=== PATIENT | female | born 1940 | race Caucasian/White ===

== ENCOUNTER 2022-05-29 11:20 | Inpatient (IN) | payer MEDICARE, SELFPAY ==
[2022-05-29] VITALS (8 sets, daily range): BP systolic 105–141; BP diastolic 60–80; PULSE 70–82; RESP 16–20; TEMP 36.7–37; O2SAT 95–100; BMI 21.4
--- NOTE | ~2022-05-29 | XR_ITS ---
EXAMINATION: XR chest 1V DATE: 05/29/2022 12:53 INDICATION: Right hip pain post fall TECHNIQUE: frontal view of the chest was obtained. COMPARISON: None FINDINGS: Lungs are hyperexpanded with mild biapical pleural-parenchymal scarring. Indeterminate approximately 2 cm spiculated nodule in the left midlung zone concerning for primary bronchogenic carcinoma. No oth er airspace opacities, pulmonary edema, pleural effusion or pneumothorax. Arch size is normal. Athero sclerotic aorta. IMPRESSION: 1. 2 cm spiculated nodule at the left midlung zone concerning for primary bronchogenic carcinoma. Rec ommend further evaluation with chest CT. Reviewed, dictated and finalized at location A. TER TECHNICIAN IMPRESSION: 1. 2 cm spiculated nodule at the left midlung zone concerning for primary bronc hogenic carcinoma. Recommend further evaluation with chest CT.
--- NOTE | ~2022-05-29 | CT_ITS ---
EXAMINATION: CT brain wo con DATE: 05/29/2022 13:02 INDICATION: Fall with head injury TECHNIQUE: Computed tomography (CT) of the head was performed without intravenous contrast. Sagittal and coronal reconstructions were performed. The mA was adjusted according to patient size. Iterative reconstruction technique was employed. The dose-length product was 605.33 mGy-cm. COMPARISON: None FINDINGS: No fracture. No acute intracranial hemorrhage, acute infarction or abnormal extra axial fluid collect ion. There is mild scattered white matter hypoattenuation consistent with chronic small vessel ischem ic disease. Symmetric prominence of the sulci consistent with mild age-appropriate diffuse cerebral v olume loss. Ventricles are normal and symmetric. No mass/mass effect. Changes of bilateral intraocula r lens replacement. The orbits and mastoid air cells are normal. Mild callosal thickening at the bila teral ethmoid sinuses. IMPRESSION: 1. No fracture or acute intracranial process. 2. Age-related changes including mild diffuse volume loss and mild scattered white matter hypoattenua tion consistent with chronic small vessel ischemic disease. Reviewed, dictated and finalized at location A. INSTRUCTOR IMPRESSION: 1. No fracture or acute intracranial process. 2. Age-related changes including mild diffuse volume loss and mild scattered wh ite matter hypoattenuation consistent with chronic small vessel ischemic diseas e.
--- NOTE | ~2022-05-29 | XR_ITS ---
EXAMINATION: XR hip RT 2V w AP pelvis DATE: 05/29/2022 12:53 INDICATION: Right hip pain post fall TECHNIQUE: Anteroposterior view of the pelvis and anteroposterior and cross-table lateral views of th e right hip were obtained. COMPARISON: None. FINDINGS: Nondisplaced intratrochanteric fracture of the proximal right femur with minimal posterior angulation resulting 4 mm separation of the anterior fracture margin on the lateral projection. There is a line ar lucency across the base of the right lesser trochanter however no discontinuity seen along the cor marta at the base of the lesser trochanter remains equivocal for whether the fracture is mildly comminu jeanmarie with typical separation of the lesser trochanter clearly seen with intratrochanteric fractures. N o other fractures identified. Visualization of the lower lumbar spine and sacrum is poor due to super imposed bowel gas. Bilateral hip joint spaces appear relatively preserved both tiny marginal osteophy yrn about the right femoral head. IMPRESSION: 1. Intertrochanteric fracture the proximal right femur, potentially mildly comminuted but which remai ns in near-anatomic alignment. Reviewed, dictated and finalized at location A. TESTER IMPRESSION: 1. Intertrochanteric fracture the proximal right femur, potentially mildly comm inuted but which remains in near-anatomic alignment.
--- NOTE | ~2022-05-29 | XR_ITS ---
EXAMINATION: XR surgery orthopedic DATE: 05/31/2022 11:20 SOCK MENDER INDICATION: RIGHT IT NAIL . TECHNIQUE: 5 fluoroscopic images of the right hip were obtained during right intertrochanteric nail p lacement performed by the surgeon. I was not present in the operating room. Fluoroscopy exposure time was 38 seconds. Air Kerma 7.4821 mGy. DAP 0.1483 mGym2. COMPARISON: None FINDINGS: Intertrochanteric nail placement, in good position. IMPRESSION: Fluoroscopic documentation of right intertrochanteric nail placement. Please refer to the operative n ote for complete procedural details . Reviewed, dictated and finalized at location K. MENDER IMPRESSION: Fluoroscopic documentation of right intertrochanteric nail placement. Please re zaina to the operative note for complete procedural details .
--- NOTE | 2022-05-29 12:26 | ECG_ITS ---
Measurements Intervals [place] Rate: 66 P: 82 CO: 163 QRS: 77 QRSD: 91 T: 66 QT: 408 QTc: 430 Interpretive Statements SINUS RHYTHM WITH OCCASIONAL SUPRAVENTRICULAR PREMATURE COMPLEXES SEPTAL MYOCARDIAL INFARCTION, OF INDETERMINATE AGE ABNORMAL ECG NO PREVIOUS ECG AVAILABLE FOR COMPARISON Electronically Signed On 05-30-2022 15:36:34 MANAGER MEDIA by Gustavo Jennings M.D.
--- NOTE | 2022-05-29 12:30 | ED.FALL ---
HPI - Fall General Chief Complaint: Fall Stated Complaint: fall Time Seen by Provider: 05/29/22 11:46 History of Present Illness HPI Narrative: Patient is an 81-year-old female presenting after a fall. Patient states that she tripped over a small dog and fell on her right side. States that she immediately had severe hip pain. States that she did strike her head but she did not lose consciousness. She denies headache, vision changes, numbness or weakness, neck or back pain. Patient was unable to ambulate so EMS was called. Patient was given a dose of fentanyl with some improvement in her pain currently states that it is 9 out of 10. She denies chest pain, shortness of breath, abdominal pain, vomiting. Denies further injuries. Related Data Home Medications Medication Instructions Recorded Confirmed No Home Medications 05/29/22 05/29/22 Allergies Allergy/AdvReac Type Severity Reaction Status Date / Time iohexol Allergy Hives Verified 05/29/22 18:52 [From contrast - CT, X-RAY] Penicillins Allergy Hives Verified 05/29/22 18:52 Review of Systems Review of Systems: All systems reviewed & are unremarkable except as noted in HPI and below PMFSH Past Medical History Medical History (Updated 06/02/22 @ 12:39 by Emily Medina MD) Closed intertrochanteric fracture of right hip ORIF on 05/31/[address] Kimbrough Multiple sclerosis Diagnosed in the 1980s. Not actively treated. Nicotine use Surgical History Surgical History History of arthroscopy of right shoulder History of bilateral cataract extraction History of bunionectomy History of kidney surgery Nephropexy. History of partial thyroidectomy Benign goiter. History of trigger finger Family History Family History Mother No problems noted. Father Cancer Sibling Brain cancer Sibling Cancer Social History Social History Social History: Surrogate medical decision maker: Ebony Price, daughter. Code status: Full code. Smoking packs per day: 0.3 Smoking cigarettes per day: 6.0 Years smoked: 60 Smoking pack-years: 18.00 Smoking status: Current every day smoker Tobacco type: cigarettes Alcohol intake: never Substance use: never Substance use type: does not use Lack of Transportation: No Lack of Food: Never True Current Housing: I Have Housing Concerned About Future Housing: No Difficulty Paying Gas/Electric Bills: No Difficulty Paying for Meds: No Currently Unemployed: No Education: High School Diploma/GED Difficulty w/ Childcare or Family Care: No Additional living arrangements comments: The patient lives in her own home in [place] with her edgardo. Spiritual care concerns: No Exam Narrative: GENERAL: Uncomfortable appearing HEAD: Normocephalic, atraumatic. EYES: PERRLA and EOMI. ENT: Nares clear, no rhinorrhea or epistaxis. Mucous membranes moist. NECK: Supple. CHEST: Clear to auscultation. No respiratory distress. HEART: Regular rate and rhythm. No murmur heard. Normal peripheral pulses. ABDOMEN: Soft, nontender, nondistended, normal active bowel sounds. EXTREMITIES: Right leg is shortened and externally rotated, severe tenderness of right hip, DP/PT pulses 2+ bilaterally SKIN: Warm, dry, no rash. NEURO: No focal deficits. Alert and oriented x3. PSYCH: Normal mood and affect. Course Vital Signs Vital signs: Vital Signs Temperature 98.6 F 05/29/22 11:26 Pulse Rate 75 05/29/22 11:26 Respiratory Rate 20 05/29/22 11:26 Blood Pressure 109/80 05/29/22 11:26 Pulse Oximetry 100 05/29/22 11:26 Oxygen Delivery Room Air 05/29/22 11:26 Temperature 98.7 F 06/02/22 09:51 Pulse Rate 94 06/02/22 09:51 Respiratory Rate 16 06/02/22 09:51 Blood Pressure 109/62 06/02/22 09:51 Pulse Oximet
[2022-05-29] MEDS: SODIUM CHLORIDE 0.9% IV 1,000 ML 999 ML IV CONT (12:36)
[2022-05-29] MEDS: fentaNYL CITRATE INJ (*CRX) 100 MCG/2 ML VIAL 50 MCG IV PUSH (12:36)
[2022-05-29 13:16] LABS: Basophils Absolute Auto 0.1 K/mm3 (0.0-0.1); Basophils Percent Auto 0.5 % (0.2-1.2); Eosinophils Percent Auto 0.1 % (0-4.4); Hematocrit 38.7 % (37.0-47.0); Immature Granulocyte Absolute 0.04 K/mm3 (0.00-0.031); Immature Granulocyte Percent A 0.4 % (0-0.5); Lymphocytes Absolute Auto 0.77 K/mm3 (0.9-3.2); Lymphocytes Percent Auto 7.7 % (18.3-44.2); Mean Corpuscular HGB Conc 33.6 g/dl (32-36); Mean Corpuscular Hemoglobin 33.1 pg (26-34); Mean Corpuscular Volume 98.5 fl (80-100); Mean Platelet Volume 8.4 fl (7.4-10.4); Monocytes Absolute Auto 0.4 K/mm3 (0.1-0.6); Monocytes Percent Auto 4.3 % (2.6-8.5); Neutrophils Absolute Auto 8.7 K/mm3 (1.3-6.7); Platelet Count Result 216 k/mm3 (150-375); Red Blood Count 3.93 M/mm3 (4.2-5.4); Red Cell Distribution Width 12.1 % (11.5-14.5)
[2022-05-29 13:26] LABS: INR 1.1; Prothrombin Time 13.4 Seconds (11.1-14.7)
[2022-05-29 13:27] LABS: Alanine Aminotransferase 16 U/L (6-35); Albumin Level 3.5 g/dL (3.5-5.1); Alkaline Phosphatase 86 U/L (38-126); Anion Gap 4 mmol/L (8-16); Aspartate Amino Transferase 21 U/L (14-36); Bilirubin,Total 0.6 mg/dL (0.2-1.3); Blood Urea Nitrogen 10 mg/dL (7-17); Calcium 8.1 mg/dL (8.4-10.2); Carbon Dioxide 26 mmol/L (22-30); Chloride 109 mmol/L (98-107); Estimated CRCL calculation 48 ml/min; Estimated Glomerular Filt Rate > 60; Glucose 100 mg/dL (65-110); Potassium 3.7 mmol/L (3.4-5.0); Sodium 139 mmol/L (137-145)
[2022-05-29 13:28] LABS: Partial Thromboplastin Time 44.2 SECONDS (22.3-36.8)
[2022-05-29] MEDS: HYDROmorphone HCL INJ (*CRX) 1 MG/ML SYR 0.5 MG IV PUSH ×3 (14:35→19:52)
[2022-05-29 17:43] LABS: Influenza A QL RT-PCR Negative (Negative); Influenza B QL RT-PCR Negative (Negative); SARS-CoV-2 RNA PCR Negative
--- NOTE | 2022-05-29 18:00 | PM.IMHP ---
H&P: HPI History of Present Illness Date/Time: 05/29/22 18:00 Chief Complaint: Right hip pain after fall. Narrative: This is a very pleasant 81-year-old female relatively healthy female (social smoker, diagnosed with MS in the without recent issues) who presented to the emergency department via EMS from home for evaluation of right hip pain after fall. She was busy this morning preparing for [employer] dinner tomorrow. Not long prior to arrival she was walking into a room and her dog apparently came running into the room as well, got under her feet, and caused her to fall down onto her right hip. She had immediate pain in that right hip and was unable to get herself up. She scooted across the floor to call for help and was brought to the ER where she was found to have an intertrochanteric fracture of the proximal right femur. She did hit her head on the floor though there was no loss of consciousness and she has no pain or contusion at the site. She sustained no other injuries in the fall. At the time my evaluation she is resting and does not have any significant pain as long as she is not moving the leg. She has some mild paresthesias in the leg but no overt numbness. She also denies skin color and temperature changes distal to the fracture site. Review of Systems Review of Systems: Twelve systems were reviewed. No fever, chills, or sweats. No recent cold or flu symptoms. No history of cardiac or pulmonary disease. She denies exertional chest pain and shortness of breath with day-to-day activities. No syncope or near syncope. No pleuritic pain or palpitations. No orthopnea or paroxysmal nocturnal dyspnea. Appetite has been good. No nausea, vomiting, diarrhea, or dysuria. Except as documented, all other systems were reviewed and are negative. [facility] Past Medical History Medical History (Updated 05/29/22 @ 23:13 by Ella Claros PA-C) Multiple sclerosis Diagnosed in the . Not actively treated. Nicotine use Surgical History Surgical History (Updated 05/29/22 @ 23:10 by Ella Claros PA-C) History of arthroscopy of right shoulder History of bilateral cataract extraction History of bunionectomy History of kidney surgery Nephropexy. History of partial thyroidectomy Benign goiter. History of trigger finger Family History Family History Mother No problems noted. Father Cancer Sibling Brain cancer Sibling Cancer Social History Social History (Updated 05/29/22 @ 23:10 by Ella Claros PA-C) Social History: Surrogate medical decision maker: Ebony Price, daughter. Code status: Full code. Smoking packs per day: 0.3 Smoking cigarettes per day: 6.0 Years smoked: 60 Smoking pack-years: 18.00 Smoking status: Current every day smoker Tobacco type: cigarettes Alcohol intake: never Substance use: never Substance use type: does not use Lack of Transportation: No Lack of Food: Never True Current Housing: I Have Housing Concerned About Future Housing: No Difficulty Paying Gas/Electric Bills: No Difficulty Paying for Meds: No Currently Unemployed: No Education: High School Diploma/GED Difficulty w/ Childcare or Family Care: No Additional living arrangements comments: The patient lives in her own home in [place] with her [facility]. Spiritual care concerns: No Meds Home Medications and Allergies Home Medications Medication Instructions Recorded Confirmed Type No Home Medications 05/29/22 05/29/22 History Allergies Allergy/AdvReac Type Severity Reaction Status Date / Time iohexol Allergy Hives Verified 05/29/22 18:52 [From contrast - CT, X-RAY] Penicillins Allergy Hives Verified 05/29/22 18:52 Vital Signs Vital Signs - 24 hr 05/29/22 11:26 05/29/22 15:16 05/29/22 15:31 Temperature 98.6 F Pulse Rate 75 72 70 Respiratory Rate 20 18 18 Blood Pressure 109/8
--- NOTE | 2022-05-29 18:40 | ADMGEN ---
This patient, Jemima Viveroswisenakia, was admitted to Medical Room 243-01. Patient/family oriented to hospital policies and general routines including ID bracelet, bed and alarms, visiting hours, pain management, procedures, bathroom and other care routines, personal items, smoking policy, room service/diet, and visiting hours. Information on how to activate the Rapid Response Team has been discussed. Patient/Family are encouraged to report perceived risks to care and to ask questions if they do not understand what they are told or what they should do.
[2022-05-29] MEDS: ONDANSETRON INJ 4 MG/2 ML VIAL IV PUSH (18:45)
[2022-05-30] MEDS: HYDROmorphone HCL INJ (*CRX) 1 MG/ML SYR 0.5 MG IV PUSH ×2 (01:45→05:25)
[2022-05-30 05:32] LABS: Anion Gap 3 mmol/L (8-16); Blood Urea Nitrogen 10 mg/dL (7-17); Calcium 8.2 mg/dL (8.4-10.2); Carbon Dioxide 26 mmol/L (22-30); Chloride 110 mmol/L (98-107); Estimated CRCL calculation 48 ml/min; Estimated Glomerular Filt Rate > 60; Glucose 90 mg/dL (65-110); Potassium 4.4 mmol/L (3.4-5.0); Sodium 139 mmol/L (137-145)
[2022-05-30 05:42] VITALS: BP 119/53; PULSE 99; RESP 20; TEMP 37.3; O2SAT 95
[2022-05-30 08:00] VITALS: PULSE 99; RESP 20; O2SAT 95
--- NOTE | 2022-05-30 08:17 | PM.CNOR ---
Assessment and Plan Assessment and plan (1) Closed intertrochanteric fracture of right hip: Code(s): S72.141A - Displaced intertrochanteric fracture of right femur, initial encounter for closed fracture Status: Acute Plan 81-year-old female with a right intertrochanteric hip fracture. I discussed the injury with the patient and her daughter. Recommend surgical stabilization with trochanteric nail which will be carried out tomorrow. Risks and potential complications were discussed in detail and questions answered. Her smoking does put her at increased risk for DVT, wound healing issues and infection, as well as delayed union. I am going to start her on aspirin today for DVT prophylaxis. Thank you for the consultation. History of Present Illness HPI Consult date: 05/30/22 Chief complaint: Hip Fracture Narrative: This document created with [id number] technology and is subject to network internship irregularities. 81-year-old female who tripped over her dog yesterday landing on her right hip suffering a minimally displaced right intertrochanteric hip fracture. No other injuries with this occurrence. [place]. Has lots of family in the area to help look after her. Review of Systems Constitutional: Constitutional: Reports no additional constitutional complaints, Denies excessive sweating and Denies fatigue Eyes: Eyes: Reports no additional eye complaints ENT: Reports system reviewed and no additional complaints, except as documented Cardiovascular: Cardiovascular: Denies chest pain at rest and Denies dyspnea Respiratory: Respiratory: Reports no additional respiratory complaints and Denies dyspnea Gastrointestinal: Gastrointestinal: Reports no additional gastrointestinal complaints Musculoskeletal: Musculoskeletal: Reports as per HPI Integumentary/Breasts: Skin/Breast: Reports system reviewed and no additional complaints, except as docu Neurologic: Reports as per HPI Endocrine: Endocrine: Denies excessive sweating and Denies fatigue Hematologic/Lymphatic: Hematologic/Lymphatic: Denies easy bleeding and Denies easy bruising PMFSH Past Medical History Medical History (Updated 05/30/22 @ 08:21 by Karthik Kimbrough MD) Closed intertrochanteric fracture of right hip Multiple sclerosis Diagnosed in the . Not actively treated. Nicotine use Surgical History Surgical History History of arthroscopy of right shoulder History of bilateral cataract extraction History of bunionectomy History of kidney surgery Nephropexy. History of partial thyroidectomy Benign goiter. History of trigger finger Family History Family History Mother No problems noted. Father Cancer Sibling Brain cancer Sibling Cancer Social History Social History Social History: Surrogate medical decision maker: Ebony Price, daughter. Code status: Full code. Smoking packs per day: 0.3 Smoking cigarettes per day: 6.0 Years smoked: 60 Smoking pack-years: 18.00 Smoking status: Current every day smoker Tobacco type: cigarettes Alcohol intake: never Substance use: never Substance use type: does not use Lack of Transportation: No Lack of Food: Never True Current Housing: I Have Housing Concerned About Future Housing: No Difficulty Paying Gas/Electric Bills: No Difficulty Paying for Meds: No Currently Unemployed: No Education: High School Diploma/GED Difficulty w/ Childcare or Family Care: No Additional living arrangements comments: The patient lives in her own home in [place] with her edgardo. Spiritual care concerns: No Meds Home Medications and Allergies Home Medications Medication Instructions Recorded Confirmed Type No Home Medications 05/29/22 05/29/22 History Allergies
[2022-05-30 08:32] VITALS: O2SAT 95
[2022-05-30] MEDS: SODIUM CHLORIDE 0.9% IV 1,000 ML 70 ML IV CONT (09:00)
[2022-05-30] MEDS: ONDANSETRON INJ 4 MG/2 ML VIAL IV PUSH ×3 (09:40→18:11)
[2022-05-30] MEDS: MORPHINE SULFATE (*CRX) 2 MG/ML INJ IV PUSH ×3 (09:40→18:11)
--- NOTE | 2022-05-30 13:37 | PM.IMPN ---
Progress Note: A&P Assessment and Plan (1) Closed right hip fracture: Code(s): S72.001A - Fracture of unspecified part of neck of right femur, initial encounter for closed fracture Status: Deleted Assessment and Plan: Patient had a mechanical fall and sustained an intertrochanteric fracture of the right femur. Planning for surgical intervention tomorrow. Appreciate orthopedic surgery consultation. Begin aspirin for DVT prophylaxis per Orthopedic surgery. Analgesics as needed. Continue bed rest for now with Sol catheter. Will need postoperative PT/OT (2) Nodule of left lung: Code(s): R91.1 - Solitary pulmonary nodule Status: Acute Assessment and Plan: 2 centimeter spiculated nodule noted in the left mid lung zone concerning for carcinoma. Discussed results with patient and family. Prefer to follow-up as an outpatient for chest CT (3) Nicotine use: Code(s): Z72.0 - Tobacco use Status: Acute Assessment and Plan: She smokes a few cigarettes a day and has for nearly 60 years. Smoking cessation is encouraged. Subjective Date/time seen: 05/30/22 13:37 Interval history: Date of service: 05/30/2022 Jemima Anguiano is 81-year-old female with a history of multiple sclerosis and tobacco abuse who is seen in follow-up for right hip fracture secondary to fall. Patient reports that when she fell she did hit her head but did not lose consciousness and has no head pain or headache. Her hip pain is 6/10 today. She endorses nausea but no emesis. She is tolerating her diet. No issues with Sol catheter. Last bowel movement 2 days ago. She complains of dizziness when she is being turned in the bed. She has no additional concerns. Review of Systems Review of Systems: All systems reviewed & are unremarkable except as noted in HPI and below Exam Narrative: General: Thin, chronically ill-appearing 81-year-old female, supine in bed, comfortable, NARD Neuro: awake, alert and oriented x4, speech clear, no focal neuro deficits noted HEENMT: normocephalic, atraumatic, EOMI, sclerae anicteric, moist oral mucosa Respiratory: clear to auscultation bilaterally, nonlabored breathing Cardio: regular rate, regular rhythm with S1-S2 Abdomen: nondistended, normoactive bowel sounds, soft, nontender to palpation : Sol catheter patent and draining straw-colored urine Extremities: Right thigh and hip nontender to palpation, BLE without edema, erythema, or tenderness to palpation, DP pulses 2+ bilaterally Skin: no rashes or lesions, warm and dry Psych: appropriate mood and affect, judgment and insight intact Objective Data Vital Signs Vital Signs: Vital Signs - 24 hr 05/29/22 15:16 05/29/22 15:31 05/29/22 15:46 Temperature Pulse Rate 72 70 72 Respiratory Rate 18 18 18 Blood Pressure 119/64 112/60 108/65 Pulse Oximetry 95 97 Oxygen Delivery 05/29/22 17:31 05/29/22 17:46 05/29/22 18:01 Temperature Pulse Rate 70 82 74 Respiratory Rate 18 18 18 Blood Pressure 141/78 H 111/71 105/64 Pulse Oximetry 97 96 96 Oxygen Delivery 05/29/22 20:16 05/29/22 20:00 05/30/22 05:42 Temperature 98.1 F 99.1 F Pulse Rate 71 99 Respiratory Rate 16 20 Blood Pressure 115/60 119/53 L Pulse Oximetry 97 95 Oxygen Delivery Room Air 05/30/22 08:00 Temperature Pulse Rate 99 Respiratory Rate 20 Blood Pressure Pulse Oximetry 95 Oxygen Delivery Room Air Intake/Output Intake/Output: Intake & Output 05/27/22 05/28/22 05/29/22 05/30/22 23:59 23:59 23:59 23:59 Intake Total 1100 Output Total 550 Balance 1100 -550 Meds/Results Medications: Active Medications Generic Name Dose Route Start Last Admin Trade Name Freq PRN Reason Stop Dose Admin Acetaminophen 1,000 mg 05/30/22 14:00 Acetaminophen 500 Mg Tablet PO Q8HR [facility] Hydrocodone Bitart/Acetaminophen 1 tab 05/29/22 23:16 Hydrocodone/Acetaminophen (*Crx) 5
[2022-05-30] MEDS: ASPIRIN 325 MG ENTERIC TABLET PO (14:14)
[2022-05-30 14:32] VITALS: BP 103/50; PULSE 78; RESP 14; TEMP 36.6; O2SAT 93
[2022-05-30] MEDS: ACETAMINOPHEN 500 MG TABLET 1000 MG PO ×2 (18:09→21:05)
[2022-05-30 18:55] VITALS: TEMP 36.6
[2022-05-30 20:55] VITALS: BP 100/50; PULSE 75; RESP 16; TEMP 36.7; O2SAT 94
[2022-05-31] VITALS (12 sets, daily range): BP systolic 114–155; BP diastolic 48–90; PULSE 72–897; RESP 12–18; TEMP 36.4–37.3; O2SAT 90–100
[2022-05-31] MEDS: SODIUM CHLORIDE 0.9% IV 1,000 ML 70 ML IV CONT (02:16)
[2022-05-31 05:47] LABS: Hematocrit 35.8 % (37.0-47.0); Hemoglobin 11.6 g/dL (12.0-15.0); Mean Corpuscular HGB Conc 32.4 g/dl (32-36); Mean Corpuscular Hemoglobin 32.7 pg (26-34); Mean Corpuscular Volume 100.8 fl (80-100); Mean Platelet Volume 8.9 fl (7.4-10.4); Platelet Count Result 194 k/mm3 (150-375); Red Blood Count 3.55 M/mm3 (4.2-5.4); White Blood Count 8.8 K/mm3 (4.5-10.0)
[2022-05-31 05:57] LABS: Anion Gap 1 mmol/L (8-16); Blood Urea Nitrogen 9 mg/dL (7-17); Calcium 7.9 mg/dL (8.4-10.2); Carbon Dioxide 27 mmol/L (22-30); Chloride 105 mmol/L (98-107); Estimated CRCL calculation 48 ml/min; Estimated Glomerular Filt Rate > 60; Glucose 96 mg/dL (65-110); Potassium 3.7 mmol/L (3.4-5.0); Sodium 133 mmol/L (137-145)
[2022-05-31] MEDS: ONDANSETRON INJ 4 MG/2 ML VIAL IV PUSH ×2 (08:16→15:21)
[2022-05-31] MEDS: MORPHINE SULFATE (*CRX) 2 MG/ML INJ IV PUSH ×3 (09:49→18:55)
--- NOTE | 2022-05-31 10:10 | PC.NURSE ---
pt to surgery via bed, 2 daughters to accompany pt to pre-op
--- NOTE | 2022-05-31 10:17 | WPDANESEPPF ---
Anes - Initial Pre Proc Eval Procedure: Operation Date: 05/31/22 10:30 Proposed Procedures p Intertrochanteric Nail(Right) - Karthik Kimbrough MD Date/Time: 05/31/22 10:17 Surgeon: Teresa Linares PA-C Pre Op Diagnosis: Hip Fracture Patient Data Age: 81 Gender: F Height: 1.65 m Weight: 62.2 kg Last Vital Signs Temp 36.6 C 05/31/22 04:54 Pulse 83 05/31/22 04:54 Resp 16 05/31/22 04:54 BP 120/90 05/31/22 04:54 Pulse Ox 95 05/31/22 04:54 O2 Del Method Room Air 05/30/22 20:00 Allergies Allergy/AdvReac Type Severity Reaction Status Date / Time iohexol Allergy Hives Verified 05/29/22 18:52 [From contrast - CT, X-RAY] Penicillins Allergy Hives Verified 05/29/22 18:52 Home Medications Medication Instructions Recorded Confirmed Type No Home Medications 05/29/22 05/29/22 History Laboratory Tests 05/31/22 05/31/22 04:59 04:59 WBC 8.8 K/mm3 K/mm3 (4.5-10.0) RBC 3.55 M/mm3 L M/mm3 (4.2-5.4) Hgb 11.6 g/dL L g/dL (12.0-15.0) Hct 35.8 % L % (37.0-47.0) MCV 100.8 fl H fl (80-100) MCH 32.7 pg pg (26-34) MCHC 32.4 g/dl g/dl (32-36) RDW 12.0 % % (11.5-14.5) Plt Count 194 k/mm3 k/mm3 (150-375) MPV 8.9 fl fl (7.4-10.4) Sodium 133 mmol/L L mmol/L (137-145) Potassium 3.7 mmol/L mmol/L (3.4-5.0) Chloride 105 mmol/L mmol/L (98-107) Carbon Dioxide 27 mmol/L mmol/L (22-30) Anion Gap 1 mmol/L L mmol/L (8-16) BUN 9 mg/dL mg/dL (7-17) Creatinine 0.70 mg/dL mg/dL (0.7-1.0) Estim Creat Clear Calc 48 ml/min ml/min Estimated GFR > 60 (59 - ) Glucose 96 mg/dL mg/dL (65-110) Calcium 7.9 mg/dL L mg/dL (8.4-10.2) Patient hx anesthesia problems: none Family hx anesthesia problems: none Results Review: All pre-operative results and documents have been reviewed as part of the pre-operative evaluation. [facility] Past Medical History Medical History Closed intertrochanteric fracture of right hip Multiple sclerosis Diagnosed in the . Not actively treated. Nicotine use Surgical History Surgical History History of arthroscopy of right shoulder History of bilateral cataract extraction History of bunionectomy History of kidney surgery Nephropexy. History of partial thyroidectomy Benign goiter. History of trigger finger Family History Family History Mother No problems noted. Father Cancer Sibling Brain cancer Sibling Cancer Social History Social History Social History: Surrogate medical decision maker: Ebony Price, daughter. Code status: Full code. Smoking packs per day: 0.3 Smoking cigarettes per day: 6.0 Years smoked: 60 Smoking pack-years: 18.00 Smoking status: Current every day smoker Tobacco type: cigarettes Alcohol intake: never Substance use: never Substance use type: does not use Lack of Transportation: No Lack of Food: Never True Current Housing: I Have Housing Concerned About Future Housing: No Difficulty Paying Gas/Electric Bills: No Difficulty Paying for Meds: No Currently Unemployed: No Education: High School Diploma/GED Difficulty w/ Childcare or Family Care: No Additional living arrangements comments: The patient lives in her own home in [place] with her edgardo. Spiritual care concerns: No Anes - Eval Final PreProcedure Day of Procedure 05/31/22 10:17 Patient weight: normal Heart: regular rate and rhythm Lungs: clear to auscultation Airway: Mallampati scale class II Neurological: alert and oriented Last oral intake: >/= 8 hours ASA classification: III Emergent: no Anesthetic plan: proceed
--- NOTE | 2022-05-31 10:45 | WPDHPUPDATE1 ---
History and Physical Update Update Date/Time: 05/31/22 10:45 History and Physical has been reviewed, including an updated exam of the patient. There are NO changes in the patient's condition. Risks, benefits, and alternatives have been discussed and questions answered. Patient agrees to proceed with procedure.
[2022-05-31] MEDS: ceFAZolin 2 GM/D5W 50 ML 2 GM/50 ML BAG IVPB ×2 (11:10→18:31)
[2022-05-31] MEDS: LACTATED RINGERS 1,000 ML 30 ML IV CONT (11:10)
--- NOTE | 2022-05-31 12:20 | W.PM.PROC2 ---
Procedure Note - Detailed Date of Procedure 05/31/22 Pre-op Diagnosis Right intertrochanteric hip fracture Post-op Diagnosis Same Procedure Performed ORIF right IT hip fracture with trochanteric nail device Surgeon Karthik Kimbrough MD Customer Service Teller Liliana S Anesthesia General Description of Procedure The patient was identified and proper site identified, then was taken to the operating room and after general anesthetic induction and intubation was transferred to the [place] table positioning supine taking care to properly pad position the torso and extremities. A provisional reduction was able to be obtained with fluoroscopic assistance. The right hip and thigh was then prepped and draped in the usual sterile fashion. A short incision was made proximal to the tip of the greater trochanter. Subcutaneous tissue was sharply dissected down to the gluteus fascia which was incised over the tip of the greater trochanter. An awl was used to create a starting hole through which a guide nicolette was inserted into the femoral canal verifying its position fluoroscopically. The one-step Reamer was used to prepare the entry point for the nicolette. A 125 degree 11 millimeter short nail was then inserted to the appropriate level using the targeting device. Through a 2nd more distal incision under fluoroscopic visualization a 100 mm lag screw was inserted over a guidewire into the femoral neck and head securing it with the set screw. The overall construct was assessed fluoroscopically on the AP and lateral views, and was noted to be satisfactory. The targeting device was removed. The wounds were irrigated with sterile antibiotic solution. The fascia was reapproximated with 0 Vicryl as was the deeper layers of the subcu. Skin edges were reapproximated with 4-0 Monocryl and tissue adhesive. Sterile dressing was applied. The procedure was well tolerated. There were no known intraoperative complications. Perioperative antibiotics were administered. Estimated Blood Loss 50 Drains No Packing No Pathology None sent Complications No immediate complications Condition Stable Disposition PACU [facility] Billing Surgery - Charge Forward: Surgery Billing ([id number], [id number])
--- NOTE | 2022-05-31 13:15 | PC.NURSE ---
pt returned to room via bed, reviewed plan of care with Ronan JARAMILLO and pt and family
--- NOTE | 2022-05-31 16:22 | PM.IMPN ---
Progress Note: A&P Assessment and Plan (1) Closed right hip fracture: Code(s): S72.001A - Fracture of unspecified part of neck of right femur, initial encounter for closed fracture Status: Deleted Assessment and Plan: Patient had a mechanical fall and sustained an intertrochanteric fracture of the right femur. Underwent ORIF right hip today performed by Dr. Kimbrough. tolerated procedure well. Appreciate orthopedic surgery management. Continue aspirin for DVT prophylaxis per Orthopedic surgery recommendations. Analgesics as needed. Appreciate PT/OT eval. Continue with Sol catheter at this time, plan for voiding trial soon. (2) Nodule of left lung: Code(s): R91.1 - Solitary pulmonary nodule Status: Acute Assessment and Plan: 2 centimeter spiculated nodule noted in the left mid lung zone concerning for carcinoma. Discussed results with patient and family. Prefer to follow-up as an outpatient for chest CT therefore will defer to PCP. (3) Nicotine use: Code(s): Z72.0 - Tobacco use Status: Acute Assessment and Plan: She smokes a few cigarettes a day and has for nearly 60 years. Smoking cessation has been encouraged. Subjective Date/time seen: 05/31/22 16:22 Interval history: Date of service: 05/31/2022 Jemima Anguiano is 81-year-old female with a history of multiple sclerosis and tobacco abuse who is seen in follow-up for right hip fracture secondary to fall. She underwent surgical repair today. She tolerated this well. She is working with PT/OT at the time of my visit and had just gotten up from the bed into the recliner. She tolerated this well. Her pain is well controlled at this time. Currently endorsing 2/10 pain. Denies nausea or vomiting. Tolerating her diet. No shortness of breath, cough, chest pain. No issues with Sol catheter. Review of Systems Review of Systems: All systems reviewed & are unremarkable except as noted in HPI and below Exam Narrative: General: Thin, chronically ill-appearing 81-year-old female, supine in bed, comfortable, NARD Neuro: awake, alert and oriented x4, speech clear, no focal neuro deficits noted HEENMT: normocephalic, atraumatic, EOMI, sclerae anicteric, moist oral mucosa Respiratory: clear to auscultation bilaterally, nonlabored breathing Cardio: regular rate, regular rhythm with S1-S2 Abdomen: nondistended, normoactive bowel sounds, soft, nontender to palpation : Sol catheter patent and draining straw-colored urine Extremities: Right thigh and hip nontender to palpation, incision covered with dressing that is clean and dry, BLE without edema, erythema, or tenderness to palpation, DP pulses 2+ bilaterally, able to wiggle toes bilaterally Skin: no rashes or lesions, warm and dry Psych: appropriate mood and affect, judgment and insight intact Objective Data Vital Signs Vital Signs: Vital Signs - 24 hr 05/30/22 18:55 05/30/22 20:55 05/30/22 20:00 Temperature 97.9 F 98.1 F Pulse Rate 75 Respiratory Rate 16 Blood Pressure 100/50 L Pulse Oximetry 94 Oxygen Delivery Room Air Oxygen Flow Rate 05/31/22 04:54 05/31/22 08:15 05/31/22 12:17 Temperature 97.9 F 98.3 F Pulse Rate 83 77 Respiratory Rate 16 12 Blood Pressure 120/90 114/69 Pulse Oximetry 95 100 Oxygen Delivery Room Air Simple Face Mask Oxygen Flow Rate 6 05/31/22 12:31 05/31/22 12:45 05/31/22 13:00 Temperature Pulse Rate 72 89 76 Respiratory Rate 15 12 18 Blood Pressure 128/72 148/78 H 155/84 H Pulse Oximetry 100 95 93 Oxygen Delivery Simple Face Mask Room Air Room Air Oxygen Flow Rate 6 05/31/22 13:06 05/31/22 13:21 05/31/22 13:51 Temperature 97.8 F 98.2 F 97.7 F Pulse Rate 83 80 79 Respiratory Rate 18 18 18 Blood Pressure 138/72 133/70 135/74 Pulse Oximetry 90 99 90 Oxygen Delivery Oxygen Flow Rate 05/31/22 14:51 Temperature 98.0 F Pulse Rate 897 H Respiratory Rate 18
[2022-05-31] MEDS: ACETAMINOPHEN 325 MG TABLET 650 MG PO (18:30)
[2022-05-31] MEDS: FAMOTIDINE 20 MG TABLET PO (20:31)
[2022-06-01] MEDS: ceFAZolin 2 GM/D5W 50 ML 2 GM/50 ML BAG IVPB ×2 (01:23→10:45)
[2022-06-01] MEDS: SODIUM CHLORIDE 0.9% IV 1,000 ML 70 ML IV CONT (01:23)
[2022-06-01 02:51] VITALS: BP 113/61; PULSE 91; RESP 16; TEMP 36.8; O2SAT 92
[2022-06-01 06:03] LABS: Basophils Absolute Auto 0.1 K/mm3 (0.0-0.1); Basophils Percent Auto 0.5 % (0.2-1.2); Eosinophils Percent Auto 0.2 % (0-4.4); Hematocrit 30.5 % (37.0-47.0); Immature Granulocyte Absolute 0.04 K/mm3 (0.00-0.031); Immature Granulocyte Percent A 0.4 % (0-0.5); Lymphocytes Absolute Auto 1.14 K/mm3 (0.9-3.2); Lymphocytes Percent Auto 12.4 % (18.3-44.2); Mean Corpuscular HGB Conc 32.8 g/dl (32-36); Mean Corpuscular Hemoglobin 32.6 pg (26-34); Mean Corpuscular Volume 99.3 fl (80-100); Mean Platelet Volume 9.1 fl (7.4-10.4); Monocytes Absolute Auto 0.9 K/mm3 (0.1-0.6); Neutrophils Absolute Auto 7.1 K/mm3 (1.3-6.7); Neutrophils Percent Auto 76.5 % (45.5-73.1); Platelet Count Result 173 k/mm3 (150-375); Red Blood Count 3.07 M/mm3 (4.2-5.4); Red Cell Distribution Width 11.9 % (11.5-14.5); White Blood Count 9.2 K/mm3 (4.5-10.0)
[2022-06-01 06:11] LABS: Anion Gap 3 mmol/L (8-16); Blood Urea Nitrogen 9 mg/dL (7-17); Calcium 7.4 mg/dL (8.4-10.2); Carbon Dioxide 28 mmol/L (22-30); Chloride 104 mmol/L (98-107); Estimated CRCL calculation 48 ml/min; Estimated Glomerular Filt Rate > 60; Glucose 109 mg/dL (65-110); Potassium 3.6 mmol/L (3.4-5.0); Sodium 135 mmol/L (137-145)
[2022-06-01 06:51] VITALS: BP 100/63; PULSE 85; RESP 16; TEMP 37.2; O2SAT 92
[2022-06-01] MEDS: APIXABAN 2.5 MG TABLET PO ×2 (08:55→20:37)
[2022-06-01] MEDS: FAMOTIDINE 20 MG TABLET PO ×2 (08:56→20:37)
[2022-06-01] MEDS: SENNA/DOCUSATE SODIUM TABLET 2 TAB PO ×2 (08:56→17:41)
[2022-06-01] MEDS: HYDROcodone/acetaminophen (*CRX) 7.5-325 MG TABLET 1 TAB PO (08:56)
[2022-06-01] MEDS: polyethylene glycoL 3350 17 GM POWD.PACK PO (08:56)
[2022-06-01] MEDS: ONDANSETRON INJ 4 MG/2 ML VIAL IV PUSH (08:57)
[2022-06-01 09:52] VITALS: BP 102/53; PULSE 93; RESP 17; TEMP 37.3; O2SAT 93
--- NOTE | 2022-06-01 12:54 | PM.IMPN ---
Progress Note: A&P Assessment and Plan (1) Closed right hip fracture: Code(s): S72.001A - Fracture of unspecified part of neck of right femur, initial encounter for closed fracture Status: Deleted Assessment and Plan: Patient had a mechanical fall and sustained an intertrochanteric fracture of the right femur. Underwent ORIF right hip on 05/[address] Kimbrough. tolerated procedure well. Appreciate orthopedic surgery management. Started on Eliquis today for DVT prophylaxis per Orthopedic surgery recommendations. Analgesics as needed. Appreciate PT/OT eval. Continue with Sol catheter at this time, plan for voiding trial tomorrow (2) Nodule of left lung: Code(s): R91.1 - Solitary pulmonary nodule Status: Acute Assessment and Plan: 2 centimeter spiculated nodule noted in the left mid lung zone concerning for carcinoma. Discussed results with patient and family. Prefer to follow-up as an outpatient for chest CT therefore will defer to PCP. (3) Nicotine use: Code(s): Z72.0 - Tobacco use Status: Acute Assessment and Plan: She smokes a few cigarettes a day and has for nearly 60 years. Smoking cessation has been encouraged. Subjective Date/time seen: 06/01/22 12:54 Interval history: Date of service: 06/01/2022 eJmima Anguiano is 81-year-old female with a history of multiple sclerosis and tobacco abuse who is seen in follow-up for right hip fracture secondary to fall. She underwent surgical repair yesterday and tolerated the procedure well. She is feeling well today. She has no hip pain when she is sitting down. This morning when she got up from bed into the chair she did have pain but felt that it would better than yesterday. She does note that when she has episodes of pain, this causes her to feel nauseous. Otherwise, she denies nausea or vomiting and is tolerating her diet. Last bowel movement was prior to surgery. No issues with her Sol catheter. Denies shortness of breath or chest pain. Review of Systems Review of Systems: All systems reviewed & are unremarkable except as noted in HPI and below Exam Narrative: General: thin, chronically ill-appearing 81-year-old female, supine in bed, comfortable, NARD Neuro: awake, alert and oriented x4, speech clear, no focal neuro deficits noted HEENMT: normocephalic, atraumatic, EOMI, sclerae anicteric, moist oral mucosa Respiratory: clear to auscultation bilaterally, nonlabored breathing Cardio: regular rate, regular rhythm with S1-S2 Abdomen: nondistended, normoactive bowel sounds, soft, nontender to palpation : Sol catheter patent and draining straw-colored urine Extremities: Right thigh and hip nontender to palpation, incision covered with dressing that is clean and dry, BLE without edema, erythema, or tenderness to palpation, DP pulses 2+ bilaterally, able to wiggle toes bilaterally Skin: no rashes or lesions, warm and dry Psych: appropriate mood and affect, judgment and insight intact Objective Data Vital Signs Vital Signs: Vital Signs - 24 hr 05/31/22 13:00 05/31/22 13:06 05/31/22 13:21 Temperature 97.8 F 98.2 F Pulse Rate 76 83 80 Respiratory Rate 18 18 18 Blood Pressure 155/84 H 138/72 133/70 Pulse Oximetry 93 90 99 Oxygen Delivery Room Air 05/31/22 13:51 05/31/22 14:51 05/31/22 16:00 Temperature 97.7 F 98.0 F Pulse Rate 79 897 H Respiratory Rate 18 18 Blood Pressure 135/74 134/74 Pulse Oximetry 90 98 Oxygen Delivery Room Air 05/31/22 18:51 05/31/22 20:00 05/31/22 20:00 Temperature 97.5 F L 99.2 F Pulse Rate 87 86 Respiratory Rate 18 16 Blood Pressure 141/86 H 119/63 Pulse Oximetry 94 91 Oxygen Delivery Room Air 05/31/22 22:51 06/01/22 02:51 06/01/22 06:51 Temperature 98.3 F 98.2 F 98.9 F Pulse Rate 85 91 85 Respiratory Rate 16 16 16 Blood Pressure 118/48 L 113/61 100/63 Pulse Oximetry 95 92 92 Oxygen Delivery 06/01/22 09:52 Temperature
[2022-06-01 14:02] VITALS: BP 140/74; PULSE 83; RESP 16; TEMP 37.2; O2SAT 95
--- NOTE | 2022-06-01 14:53 | PM.PNORT ---
Progress Note: A&P Assessment and Plan (1) Closed intertrochanteric fracture of right hip: Code(s): S72.141A - Displaced intertrochanteric fracture of right femur, initial encounter for closed fracture Status: Acute Plan 81-year-old female postop day 1 after ORIF of IT right hip fracture. Overall doing very well. Continue to mobilize with therapy. Start daily dressing changes tomorrow. She will benefit from placement to rehab facility to assist with ADLs. Remain toe-touch weight-bearing. Plan follow-up in 2 weeks in the office for staple removal and new x-ray. She will be placed on Eliquis 2.5 mg b.i.d. x 6 weeks for DVT prophylaxis. Subjective Subjective Date/Time Seen: 06/01/22 14:53 Post Op day: 1 Principal diagnosis: s/p ORIF right IT hip fracture Interval history: 81-year-old female postop day 1 after ORIF of right intertrochanteric hip fracture. Overall doing very well and plans to be discharged to rehab facility. She was able to participate as expected with therapy today. She is relatively pain-free at rest. Review of Systems Review of Systems: All systems reviewed & are unremarkable except as noted in HPI and below Constitutional: Constitutional: Reports as per HPI and Reports no additional constitutional complaints Respiratory: Respiratory: Reports as per HPI and Reports no additional respiratory complaints Musculoskeletal: Musculoskeletal: Reports no additional musculoskeletal complaints Exam Const: General: comfortable and no acute distress Resp: Effort & Inspection: normal respiratory effort GI: Inspection: non-distended Skin: General skin exam: normal color Extrem: Other: Exam of the right hip shows a clean surgical dressing with very mild drainage. No appreciable swelling of the right lower extremity. Neurovascular status right lower extremity is intact. Psych: Mental Status: mental status grossly normal Radiology Reports: Comments: EXAMINATION: XR surgery orthopedic DATE: 05/31/2022 11:20 HAZMAT TECHNICIAN INDICATION: RIGHT IT NAIL . TECHNIQUE: 5 fluoroscopic images of the right hip were obtained during right intertrochanteric nail placement performed by the surgeon. I was not present in the operating room. Fluoroscopy exposure time was 38 seconds. Air Kerma 7.4821 mGy. DAP 0.1483 mGym2. COMPARISON: None FINDINGS: Intertrochanteric nail placement, in good position. IMPRESSION: Fluoroscopic documentation of right intertrochanteric nail placement. Please refer to the operative note for complete procedural details . Hip and Pelvis X-Ray 05/29/22 Objective Data Vital Signs Vital Signs: Vital Signs - 24 hr 05/31/22 16:00 05/31/22 18:51 05/31/22 20:00 Temperature 97.5 F L 99.2 F Pulse Rate 87 86 Respiratory Rate 18 16 Blood Pressure 141/86 H 119/63 Pulse Oximetry 94 91 Oxygen Delivery Room Air 05/31/22 20:00 05/31/22 22:51 06/01/22 02:51 Temperature 98.3 F 98.2 F Pulse Rate 85 91 Respiratory Rate 16 16 Blood Pressure 118/48 L 113/61 Pulse Oximetry 95 92 Oxygen Delivery Room Air 06/01/22 06:51 06/01/22 09:52 Temperature 98.9 F 99.1 F Pulse Rate 85 93 Respiratory Rate 16 17 Blood Pressure 100/63 102/53 L Pulse Oximetry 92 93 Oxygen Delivery Intake/Output Intake/Output: Intake & Output 05/29/22 05/30/22 05/31/22 06/01/22 23:59 23:59 23:59 23:59 Intake Total 1100 1800 1700 1320 Output Total 1100 305 750 Balance 1239 591 3416 570 Meds/Results Medications: Active Medications Generic Name Dose Route Start Last Admin Trade Name Freq PRN Reason Stop Dose Admin Acetaminophen 650 mg 05/31/22 13:06 05/31/22 18:30 Acetaminophen 325 Mg Tablet PO 650 mg Q6H PRN Administration Mild Pain (1-3) or Fever Hydrocodone Bitart/Acetaminophen 1 tab 05/31/22 13:06 06/01/22 08:56 Hydrocodone/Acetaminophen (*Crx) 7.5-325 Mg Tablet PO 1 tab Q3H PRN Administration Pain Rated 4-6 Hydrocodone Bitart/A
[2022-06-01 18:33] VITALS: BP 115/57; PULSE 98; RESP 16; TEMP 37.9; O2SAT 90
[2022-06-01 20:44] VITALS: BP 115/63; PULSE 100; RESP 18; TEMP 36.9; O2SAT 90
[2022-06-02] MEDS: ONDANSETRON INJ 4 MG/2 ML VIAL IV PUSH (03:32)
[2022-06-02 03:39] VITALS: BP 145/76; PULSE 95; RESP 20; TEMP 36.6; O2SAT 93
[2022-06-02 05:55] LABS: Hematocrit 30.1 % (37.0-47.0); Hemoglobin 10.1 g/dL (12.0-15.0); Mean Corpuscular HGB Conc 33.6 g/dl (32-36); Mean Corpuscular Hemoglobin 32.4 pg (26-34); Mean Corpuscular Volume 96.5 fl (80-100); Mean Platelet Volume 9.2 fl (7.4-10.4); Platelet Count Result 204 k/mm3 (150-375); Red Blood Count 3.12 M/mm3 (4.2-5.4); Red Cell Distribution Width 11.9 % (11.5-14.5); White Blood Count 9.3 K/mm3 (4.5-10.0)
[2022-06-02 06:11] LABS: Anion Gap 3 mmol/L (8-16); Blood Urea Nitrogen 9 mg/dL (7-17); Calcium 7.9 mg/dL (8.4-10.2); Carbon Dioxide 29 mmol/L (22-30); Chloride 104 mmol/L (98-107); Estimated CRCL calculation 55 ml/min; Estimated Glomerular Filt Rate > 60; Glucose 111 mg/dL (65-110); Potassium 3.7 mmol/L (3.4-5.0); Sodium 136 mmol/L (137-145)
[2022-06-02] MEDS: SENNA/DOCUSATE SODIUM TABLET 2 TAB PO (09:08)
[2022-06-02] MEDS: APIXABAN 2.5 MG TABLET PO (09:08)
[2022-06-02] MEDS: FAMOTIDINE 20 MG TABLET PO (09:08)
[2022-06-02] MEDS: ACETAMINOPHEN 325 MG TABLET 650 MG PO (09:09)
[2022-06-02] MEDS: polyethylene glycoL 3350 17 GM POWD.PACK PO (09:09)
[2022-06-02 09:51] VITALS: BP 109/62; PULSE 94; RESP 16; TEMP 37.1; O2SAT 95
--- NOTE | 2022-06-02 11:15 | PM.DS ---
DS: Admitting Diagnosis Discharge Date 06/02/22 1115 Admitting Diagnosis Acute hip fracture with repair DS: Discharge Diagnosis Discharge Diagnosis (1) Nodule of left lung: Code(s): R91.1 - Solitary pulmonary nodule Status: Acute Assessment and Plan: 2 centimeter spiculated nodule noted in the left mid lung zone concerning for carcinoma. Discussed results with patient and family. Prefer to follow-up as an outpatient for chest CT therefore will defer to PCP. (2) Nicotine use: Code(s): Z72.0 - Tobacco use Status: Acute Assessment and Plan: She smokes a few cigarettes a day and has for nearly 60 years. Smoking cessation has been encouraged. DS: Summary Hospital Course Hospital Course: Patient is a 89-year-old female with a past medical history MS, hypothyroidism who presented to the ED after a fall. Upon arrival patient was noted to an intertrochanteric fracture of the right femur. Orthopedics was consulted and patient was taken to OR for repair. Chest x-ray did noted a 2 cm nodule in the left mid low zone concerning for carcinoma. Patient will need a chest CT follow-up at a later time. Patient has been doing well with therapy and is stable for discharge at this time patient will be discharged to either [facility] or home with home health. Currently patient is stable with no complaints including chest pain, shortness of breath, nausea, vomiting, diarrhea, constipation, weakness or fatigue. Patient stable labs and vital signs. Smoking cessation education has been given patient verbalized understanding. She did complain of pain that she rated to be 5/10. Status at Discharge Functional status at discharge: uses cane/walker Overall status at discharge: patient is progressing back to baseline Time Spent with Patient Time attestation: Total time spent providing and/or coordinating discharge services:38 minutes Time spent: Greater than 30 minutes Specific discharge activities: Diagnostic testing, chart review, developing a treatment plan, education, care coordination documentation, physical exam, result review Exam Narrative: General: thin, chronically ill-appearing 81-year-old female, supine in bed, comfortable, NARD Neuro: awake, alert and oriented x4, speech clear, no focal neuro deficits noted HEENMT: normocephalic, atraumatic, EOMI, sclerae anicteric, moist oral mucosa Respiratory: clear to auscultation bilaterally, nonlabored breathing Cardio: regular rate, regular rhythm with S1-S2 Abdomen: nondistended, normoactive bowel sounds, soft, nontender to palpation : Catheter has been removed, urination as expected Extremities: Right thigh and hip nontender to palpation, incision covered with dressing that is clean and dry, BLE without edema, erythema, or tenderness to palpation, DP pulses 2+ bilaterally, able to wiggle toes bilaterally Skin: no rashes or lesions, warm and dry Psych: appropriate mood and affect, judgment and insight intact DS: Data Data Completed and Pending Labs on day of discharge: Labs from last 24 hours 06/02/22 06/02/22 05:15 05:15 WBC 9.3 RBC 3.12 L Hgb 10.1 L Hct 30.1 L MCV 96.5 MCH 32.4 MCHC 33.6 RDW 11.9 Plt Count 204 MPV 9.2 Sodium 136 L Potassium 3.7 Chloride 104 Carbon Dioxide 29 Anion Gap 3 L BUN 9 Creatinine 0.60 L Estim Creat Clear Calc 55 Estimated GFR > 60 Glucose 111 H Calcium 7.9 L Discharge Plan Discharge Attending physician on discharge: Fox Cavazos Consulting providers: Karthik Kimbrough Discharging Clinician: Vance Asencio Patient Disposition: Inpatient Rehab Facility Activity: may shower, unlimited and as tolerated Diet: regular Wound Care Instructions: change dressing daily Discharge Instructions: Orthopedic Discharge instructions For Dr. Kimbrough: Please reapply an island dressing daily and keep this clean and dry. Remain
[2022-06-02 15:34] VITALS: BP 115/57; PULSE 89; RESP 18; TEMP 36.8; O2SAT 96
== END 2022-06-02 16:10 | DRG 482 ==
LOC: ANHED 11:53 → ANH2MED 23:55 → ANH3MEDSUR 06-03 14:03
PROVIDERS: Orthopaedic Surgery; Physician Assistant; Admitting Provider Internal Medicine; Emergency Provider Emergency Medicine; PCP Family Medicine; Visit Provider Physician Assistant
PROC: 0QS634Z Reposition Right Upper Femur with Internal Fixation Device, Percutaneous Approach (ICD-10-PCS; CPT 27245; principal; 2022-05-31 10:30)
DX: S72.141A Displaced intertrochanteric fracture of right femur, initial encounter for closed fracture (principal); G35 Multiple sclerosis; R91.1 Solitary pulmonary nodule; Z20.822 Contact with and (suspected) exposure to COVID-19; Z80.8 Family history of malignant neoplasm of other organs or systems; Z88.0 Allergy status to penicillin; Z72.0 Tobacco use; W01.0XXA Fall on same level from slipping, tripping and stumbling without subsequent striking against object, initial encounter
CPT/HCPCS: 36415; 70450; 71045; 73502; 80048; 80053; 83735; 85025; 85027; 85610; 85730; 86850; 86900; 86901; 87636; 93005; 96365; 96375; 97110; 97116; 97161; 97165; 97530; 97535; 99199; 99285; A9270; C1713; J0131; J0690; J1100; J1170; J2270; J2370; J2405; J2704; J3010; J7030; J7120

== ENCOUNTER 2022-08-16 10:49 | Outpatient (RCR) | payer MEDICARE, SELFPAY ==
--- NOTE | 2022-08-16 11:42 | PTOPEVAL1 ---
Assessment and note entered by Fox Morrow Evaluation Information Assessment Status Evaluation Diagnosis right femur fx Onset 05/29/22 Subjective Information Pt. reports that she fell on 05/29/22 after tripping over her dog. she reports she was in the hospital for 2 days prior to surgery. She reports that she was in a rehab facility for about 8 days after the surgery. She reports she was then recieving HH therapy and was discharged last week. [place] She states that prior to her fall she was doing all activities around her home, including outdoor work. She reports she is currently using a cane for ambulation, and was not prior to injury. She states that she has returned to driving and has been driving more locally. She reports that her main goal for therapy is to be able to walk without an AD. Reported Pain Level Pain Score 2: Self Report Assessment PT Clinical Summary Pt. is an 81 year old female who enters the clinic post right hip fx. She presents with impaired gait, generalized l.e. weakness, impaired balance and pain. Continued skilled PT is indicated in order to improve these areas to allow the pt. to be able to participate in normal IADL's without limitation. Plan of Care Interventions Gait Training,Manual Therapy,Neuro Re-education, Therapeutic Activities,Therapeutic Exercise PT Services Indicated Yes Treatment Frequency and 3x/week x 12 visits Duration These treatments will address the objective and functional deficits as defined above. The patient will be advanced safely and appropriately in order for the patient to progress towards his/her prior level of function. Additional exercises will be introduced and as well as a comprehensive home exercise program upon discharge, if needed, ?to ensure carryover of functional gains achieved in the clinic. This treatment plan has been reviewed and agreement upon by the patient.
--- NOTE | 2022-09-07 16:54 | PTOPDC ---
Assessment and note entered by JT File, PT Evaluation Information Assessment Status Discharge Diagnosis right femur fx Onset 05/29/22 Subjective Information patient reports she feels great this date. she reports she does not jump or run. she reports she gets out and walks up and down her driveway every day. Reported Pain Level Pain Score 0: Self Report Assessment PT Clinical Summary mrs. salcedo presents to skilled PT services for her 10th skilled therapy visit. as of this date, she has met all goals for skilled PT except for 5/5 strength of the hips. she has returned to all prior level walking, driving, and daily activities. she will DC skilled PT this date and continue with HEP independent at home. Plan of Care PT Services Indicated Yes
== END 2022-09-07 14:49 | disposition home or self-care (01) ==
LOC: CHSPT 10:49
PROVIDERS: Visit Provider Orthopaedic Surgery
DX: Z47.89 Encounter for other orthopedic aftercare (principal)
CPT/HCPCS: 97110; 97112; 97161; 97530

== ENCOUNTER 2023-01-18 09:08 | Outpatient (CLI) | payer MEDICARE, SELFPAY ==
[2023-01-18 19:33] LABS: Basophils Absolute Auto 0.1 K/mm3 (0.0-0.1); Basophils Percent Auto 0.8 % (0.2-1.2); Eosinophils Absolute Auto 0.3 K/mm3 (0-0.3); Eosinophils Percent Auto 3.8 % (0-4.4); Hematocrit 46.7 % (37.0-47.0); Hemoglobin 15.2 g/dL (12.0-15.0); Immature Granulocyte Absolute 0.02 K/mm3 (0.00-0.031); Immature Granulocyte Percent A 0.3 % (0-0.5); Lymphocytes Absolute Auto 1.29 K/mm3 (0.9-3.2); Lymphocytes Percent Auto 18.2 % (18.3-44.2); Mean Corpuscular HGB Conc 32.5 g/dl (32-36); Mean Corpuscular Hemoglobin 32.5 pg (26-34); Mean Platelet Volume 9.3 fl (7.4-10.4); Monocytes Absolute Auto 0.4 K/mm3 (0.1-0.6); Monocytes Percent Auto 5.9 % (2.6-8.5); Platelet Count Result 293 k/mm3 (150-375); Red Blood Count 4.67 M/mm3 (4.2-5.4); Red Cell Distribution Width 12.7 % (11.5-14.5); White Blood Count 7.1 K/mm3 (4.5-10.0)
[2023-01-18 19:50] LABS: Anion Gap 3 mmol/L (8-16); Blood Urea Nitrogen 14 mg/dL (7-17); Calcium 9.5 mg/dL (8.4-10.2); Carbon Dioxide 33 mmol/L (22-30); Chloride 102 mmol/L (98-107); Estimated Glomerular Filt Rate > 60; Glucose 84 mg/dL (65-110); Potassium 5.1 mmol/L (3.4-5.0); Sodium 138 mmol/L (137-145)
== END 2023-01-18 09:09 | disposition home or self-care (01) ==
PROVIDERS: PCP Nurse Practitioner Adult Health; Visit Provider Nurse Practitioner Adult Health
DX: E87.1 Hypo-osmolality and hyponatremia (principal); D64.9 Anemia, unspecified; Z78.0 Asymptomatic menopausal state
CPT/HCPCS: 36415; 80048; 85025

== ENCOUNTER 2023-01-26 09:09 | Outpatient (CLI) | payer MEDICARE, SELFPAY ==
[2023-01-26 18:47] LABS: Potassium 4.9 mmol/L (3.4-5.0)
== END 2023-01-26 09:10 | disposition home or self-care (01) ==
PROVIDERS: PCP Nurse Practitioner Adult Health; Visit Provider Nurse Practitioner Adult Health
DX: E87.5 Hyperkalemia (principal)
CPT/HCPCS: 36415; 84132

== ENCOUNTER 2023-04-18 14:36 | Outpatient (CLI) | payer MEDICARE, SELFPAY ==
--- NOTE | ~2023-04-18 | DEXA_ITS ---
Bone Density Report Name: ALEX HUSSEIN Age: 82 Sex: Female Ethnicity: White Date of : 1940 Indication: postmenopausal; screening for osteoporosis; height loss; prior fracture; Referring Provider: MARINE REDDING Study: Bone densitometry was performed. Exam Date: April 18, 2023 Accession number: [id number] Bone Density: Region BMD T-score Z-score Classification AP Spine(L1-L4) 0.819 -2.1 0.7 Osteopenia Femoral Neck (Left) 0.528 -2.9 -0.4 Osteoporosis Total Hip (Left) 0.581 -3.0 -0.7 Osteoporosis World Health Organization criteria for BMD impression classify patients as: Normal (T-score at or above -1.0), Osteopenia (T-score between -1.0 and -2.5), or Osteoporosis (T-score at or below -2.5). 10-year Fracture Risk: FRAX not reported because: Some T-score for Spine Total or Hip Total or Femoral Neck at or below -2.5 Prior hip or vertebral fracture Clinical Information Provided by Patient: Have had a previous hip or vertebral fracture Has had a low trauma fracture Has used the following medications: Vitamin D Patient maximum height was 65 Menopause Age: 44 No regular weight bearing exercise Drinks caffeinated beverages Onset of menses at age 13 Number of children 4 Impression: The patient has established osteoporosis, based on the Left Total Hip T-score and the existence of a prior fracture. The patient has risk factors, including: previous fracture. Discussion: HIGH RISK OF FRACTURE. BONE DENSITY IS UNDESIRABLY LOW AT ONE OR MORE SKELETAL SITES, CONSISTENT WITH POSTMENOPAUSAL OSTEOPOROSIS. This patient's lowest T-score, in a patient who has previously fractured, meets the World Health Organization's (WHO) criteria for severe osteoporosis. In untreated patients, the risk of osteoporotic fracture increases approximately two-fold for each 1.0 SD decrease in T-score. Low bone density is not the only risk factor for fracture; also consider factors such as patient's age, frailty or poor health, risk of falling, risk of injury, previous osteoporotic fracture, family history of osteoporosis, cigarette smoking, low body weight, etc. Not everyone with low bone mineral density has osteoporosis; osteomalacia and other metabolic bone disorders should also be considered. Patients who have osteoporosis should be evaluated for specific diseases and conditions (secondary causes) that may cause or contribute to bone loss. The [place] [employer]ocr[employer] (AACE) and National Osteoporosis Foundation (NOF) recommend pharmacologic intervention for all postmenopausal women with a previous hip or vertebral fracture and a T-score in this range. The patient should follow a healthful lifestyle (good nutrition with adequate calcium and vitamin D, and appropriate weight-bearing exercise). Follow-Up: Consider a repeat BMD and Vertebra
== END 2023-04-18 14:37 | disposition home or self-care (01) ==
LOC: ANHIMG 14:38
PROVIDERS: PCP Family Medicine; Visit Provider Nurse Practitioner Adult Health
DX: Z78.0 Asymptomatic menopausal state (principal); M85.88 Other specified disorders of bone density and structure, other site; M81.0 Age-related osteoporosis without current pathological fracture
CPT/HCPCS: 77080

== ENCOUNTER 2023-07-21 08:39 | Outpatient (CLI) | payer MEDICARE, SELFPAY ==
--- NOTE | ~2023-07-21 | XR_ITS ---
AP and lateral views of the right hip Clinical history: Pain COMPARISON: 09/21/2022 Findings: No acute fracture or dislocation is seen. Patient is status post prior ORIF of the proximal right femur. Osseous and orthopedic hardware alignment is stable. Soft tissues are unremarkable. Impression: No acute abnormality. Prior ORIF the proximal right femur, unchanged. Reviewed, dictated and finalized at location . [facility] [employer] Impression: No acute abnormality. Prior ORIF the proximal right femur, unchanged.
[2023-07-21 19:11] LABS: Basophils Absolute Auto 0.1 K/mm3 (0.0-0.1); Basophils Percent Auto 0.8 % (0.2-1.2); Eosinophils Absolute Auto 0.2 K/mm3 (0-0.3); Hematocrit 45.5 % (37.0-47.0); Hemoglobin 14.5 g/dL (12.0-15.0); Immature Granulocyte Absolute 0.03 K/mm3 (0.00-0.031); Immature Granulocyte Percent A 0.4 % (0-0.5); Lymphocytes Absolute Auto 1.14 K/mm3 (0.9-3.2); Lymphocytes Percent Auto 15.2 % (18.3-44.2); Mean Corpuscular HGB Conc 31.9 g/dl (32-36); Mean Corpuscular Hemoglobin 32.3 pg (26-34); Mean Corpuscular Volume 101.3 fl (80-100); Mean Platelet Volume 9.7 fl (7.4-10.4); Monocytes Absolute Auto 0.5 K/mm3 (0.1-0.6); Monocytes Percent Auto 6.1 % (2.6-8.5); Neutrophils Absolute Auto 5.7 K/mm3 (1.3-6.7); Neutrophils Percent Auto 75.5 % (45.5-73.1); Platelet Count Result 278 k/mm3 (150-375); Red Blood Count 4.49 M/mm3 (4.2-5.4); Red Cell Distribution Width 12.5 % (11.5-14.5); White Blood Count 7.5 K/mm3 (4.5-10.0)
[2023-07-21 19:40] LABS: Alanine Aminotransferase 16 U/L (6-35); Albumin Level 4.4 g/dL (3.5-5.1); Alkaline Phosphatase 109 U/L (38-126); Anion Gap 7 mmol/L (8-16); Aspartate Amino Transferase 46 U/L (14-36); Bilirubin,Total 0.9 mg/dL (0.2-1.3); Blood Urea Nitrogen 12 mg/dL (7-17); Calcium 9.5 mg/dL (8.4-10.2); Carbon Dioxide 28 mmol/L (22-30); Chloride 103 mmol/L (98-107); Estimated Glomerular Filt Rate 53; Glucose 95 mg/dL (65-110); Phosphorus 3.9 mg/dL (2.5-4.5); Potassium 4.6 mmol/L (3.4-5.0); Sodium 138 mmol/L (137-145)
[2023-07-21 19:42] LABS: Vitamin D 25 Hydroxy 42.4 ng/mL
== END 2023-07-21 08:40 | disposition home or self-care (01) ==
LOC: ANHBWCLAB 08:41
PROVIDERS: PCP Nurse Practitioner Adult Health; Visit Provider Nurse Practitioner Adult Health
DX: M25.551 Pain in right hip (principal); M81.0 Age-related osteoporosis without current pathological fracture; D64.9 Anemia, unspecified; Z98.890 Other specified postprocedural states
CPT/HCPCS: 36415; 73502; 80053; 82306; 84100; 85025

== ENCOUNTER 2023-09-25 22:31 | Inpatient (IN) | payer MEDICARE, SELFPAY ==
--- NOTE | ~2023-09-25 | XR_ITS ---
EXAMINATION: XR hip LT 2V w AP pelvis DATE: 09/25/2023 23:23 INDICATION: Left hip pain. TECHNIQUE: An anteroposterior view of the pelvis and 2 views of left hip were obtained. COMPARISON: Pelvis radiograph 06/15/2022 FINDINGS: There is lumbar dextroscoliosis and severe spondylosis. There is a comminuted intertrochant kiana fracture of proximal left femur. The main distal fracture fragment demonstrates impaction and 15 degrees varus angulation. There is internal fixation of proximal right femur with antegrade intramed ullary nicolette and femoral head/neck screw. There is mild osteoarthritis of left hip. IMPRESSION: 1. Intertrochanteric fracture of proximal left femur. 2. Mild left hip osteoarthritis. Reviewed, dictated and finalized at location E.
--- NOTE | ~2023-09-25 | XR_ITS ---
EXAM: [id number] DATE: 09/26/2023 17:12 HISTORY: knee pain s/p fall . COMPARISON: None available. FINDINGS: Decreased mineralization. No fracture or dislocation. No lytic or blastic lesion. Mild tri compartmental osteoarthritis. Quadriceps enthesopathy. Small volume joint fluid. Mild anterior soft t issue swelling. No erosion or periosteal change. IMPRESSION: No acute osseous finding in the left knee. Reviewed, dictated and finalized at location K.
--- NOTE | ~2023-09-25 | XR_ITS ---
EXAMINATION: XR surgery orthopedic DATE: 09/27/2023 16:45 CDT INDICATION: LEFT IT NAIL . TECHNIQUE: 3 fluoroscopic images of the left hip were obtained during left intertrochanteric nail dontae cement, performed by Mychal Greene MD. I was not present during the procedure. Fluoroscopy exposur e time was 1 minute 9.8 seconds. Air Kerma 15.720 mGy. DAP 0.3116 mGym2. COMPARISON: 09/25/2023 FINDINGS/IMPRESSION: Fluoroscopic documentation of left intertrochanteric nail placement. Please refer to the operative no te for complete procedural details. Reviewed, dictated and finalized at location K.
--- NOTE | ~2023-09-25 | CT_ITS ---
EXAMINATION:CT diagnostic chest wo con DATE: 09/26/2023 09:00 INDICATION: Lung mass. TECHNIQUE: Computed tomography (CT) of the chest was performed without intravenous contrast. Automate d exposure control and iterative reconstruction technique were employed. The dose-length product (DLP ) was 148.16 mGy-cm. COMPARISON: Chest single view 09/25/2023 FINDINGS: There is mild scarring at the lung apices. There is moderate emphysema. There is mild atele ctasis bilaterally. There is a 3.3 x 3.1 cm spiculated mass in left lower lobe and left upper lobe. T here is a 7 mm nodule at right major fissure, probably benign. No pleural effusion. There are nodules in the thyroid measuring up to 4 mm, likely not clinically significant. There is calcified atheroscl erosis of the aorta and many of the other arteries. The heart size is normal. There are coronary ronal ry calcifications. No pericardial effusion. There is a 2.4 cm cyst in left kidney. There are cysts in the liver measuring up to 15 mm. There is severe mid thoracic spondylosis. IMPRESSION: 1. 3.3 x 3.1 cm mass in left lung, consistent with primary bronchogenic carcinoma. CT-guided biopsy i s recommended. 2. Moderate emphysema. Reviewed, dictated and finalized at location E. IMPRESSION: 1. 3.3 x 3.1 cm mass in left lung, consistent with primary bronchogenic carcino ma. CT-guided biopsy is recommended. 2. Moderate emphysema.
--- NOTE | ~2023-09-25 | XR_ITS ---
EXAMINATION: XR chest 1V DATE: 09/25/2023 23:23 INDICATION: Cough. TECHNIQUE: A single frontal view of the chest was obtained. COMPARISON: None. FINDINGS: There is a mass in left midlung zone. There is mild scarring at the lung apices. There are lucencies in the lungs, consistent with emphysema. No pleural effusion or pneumothorax. The heart siz e is normal. IMPRESSION: 1. Mass in left midlung zone suspicious for primary bronchogenic carcinoma. Noncontrast chest CT is r ecommended. 2. Emphysema. Reviewed, dictated and finalized at location E. IMPRESSION: 1. Mass in left midlung zone suspicious for primary bronchogenic carcinoma. Non contrast chest CT is recommended. 2. Emphysema.
[2023-09-25 22:30] VITALS: BP 175/96; PULSE 88; RESP 18; TEMP 36.6; O2SAT 100
--- NOTE | 2023-09-25 22:44 | ECG_ITS ---
SEE SCANNED COPY FOR CONFIRMED REPORT MTDD
[2023-09-25] MEDS: MORPHINE SULFATE (*CRX) 4 MG/ML INJ IV PUSH (23:00)
[2023-09-25] MEDS: ONDANSETRON INJ 4 MG/2 ML VIAL IV PUSH (23:00)
[2023-09-25 23:06] LABS: Basophils Absolute Auto 0.1 K/mm3 (0.0-0.1); Basophils Percent Auto 0.7 % (0.2-1.2); Eosinophils Absolute Auto 0.1 K/mm3 (0-0.3); Eosinophils Percent Auto 1.1 % (0-4.4); Hematocrit 37.8 % (37.0-47.0); Hemoglobin 12.8 g/dL (12.0-15.0); Immature Granulocyte Absolute 0.03 K/mm3 (0.00-0.031); Immature Granulocyte Percent A 0.3 % (0-0.5); Lymphocytes Absolute Auto 1.01 K/mm3 (0.9-3.2); Lymphocytes Percent Auto 11.2 % (18.3-44.2); Mean Corpuscular HGB Conc 33.9 g/dl (32-36); Mean Corpuscular Volume 97.4 fl (80-100); Mean Platelet Volume 8.8 fl (7.4-10.4); Monocytes Absolute Auto 0.5 K/mm3 (0.1-0.6); Monocytes Percent Auto 5.6 % (2.6-8.5); Neutrophils Absolute Auto 7.3 K/mm3 (1.3-6.7); Neutrophils Percent Auto 81.1 % (45.5-73.1); Platelet Count Result 226 k/mm3 (150-375); Red Blood Count 3.88 M/mm3 (4.2-5.4); Red Cell Distribution Width 12.3 % (11.5-14.5)
[2023-09-25 23:16] LABS: INR 0.9; Prothrombin Time 12.8 Seconds (11.1-14.7)
[2023-09-25 23:17] LABS: Partial Thromboplastin Time 44.4 Seconds (22.3-36.8)
[2023-09-25 23:40] LABS: Alanine Aminotransferase 12 U/L (6-35); Albumin Level 3.8 g/dL (3.5-5.1); Alkaline Phosphatase 87 U/L (38-126); Anion Gap 3 mmol/L (4-12); Aspartate Amino Transferase 23 U/L (14-36); Bilirubin,Total 0.6 mg/dL (0.2-1.3); Blood Urea Nitrogen 14 mg/dL (7-17); Calcium 8.8 mg/dL (8.4-10.2); Carbon Dioxide 27 mmol/L (22-30); Chloride 108 mmol/L (98-107); Estimated CRCL calculation 34 ml/min; Estimated Glomerular Filt Rate 60; Glucose 116 mg/dL (65-110); Potassium 3.8 mmol/L (3.4-5.0); Sodium 138 mmol/L (137-145)
[2023-09-25 23:50] VITALS: BP 164/90; PULSE 88; RESP 16; O2SAT 100
--- NOTE | 2023-09-25 23:59 | ED.GENADULT ---
HPI - General Adult General Chief complaint: Fall Stated complaint: fall, hip pain History of Present Illness HPI narrative: Patient 82-year-old female who presents emergency department chief complaint of left hip pain. Patient reports she was going over to a family member's house to feed her sugar lighters still missed a step and fell. The patient reports she has pain in her left hip reports that her lower extremity shortened and rotated. Patient reports no head injury denies loss of consciousness reports not being on blood thinners reports some that the pain is worse with movement Related Data Home Medications Medication Instructions Recorded Confirmed multivitamin with minerals 1 tablet PO DAILY 06/15/22 07/21/23 (Multiple Vitamin-Minerals tablet) Allergies Allergy/AdvReac Type Severity Reaction Status Date / Time Iodinated Contrast Media Allergy Unknown Hives Verified 09/25/23 22:38 iohexol Allergy Hives Verified 09/25/23 22:38 [From contrast - CT, X-RAY] Penicillins Allergy Hives Verified 09/25/23 22:38 Review of Systems Review of Systems: A 10 system review of systems was completed on the patient and is negative except for what is stated in the HPI. Nursing and ancillary documentation was reviewed. [facility] Past Medical History Medical History Multiple sclerosis Diagnosed in the 1980s. Not actively treated. Nicotine use Surgical History Surgical History Closed intertrochanteric fracture of right hip ORIF with trochanteric nail on 05/31/2022 History of arthroscopy of right shoulder History of bilateral cataract extraction History of bunionectomy History of cochlear implant History of kidney surgery Nephropexy. History of partial thyroidectomy Benign goiter. History of trigger finger Family History Family History Father Cancer Sibling Brain cancer Alcoholism Sibling Cancer Other Alcoholism Cancer Daughter Alcoholism Hypertension Cerebrovascular accident Thyroid disorder Social History Social History Social History: Surrogate medical decision maker: Ebony Price, daughter. Code status: Full code. Smoking packs per day: 0.3 Smoking cigarettes per day: 6.0 Years smoked: 60 Smoking pack-years: 18.00 Smoking status: Former smoker Tobacco type: cigarettes Smoking end date: 05/29/22 Alcohol intake: never Substance use: never Substance use type: does not use Lack of Transportation: No Lack of Food: Never True Current Housing: I Have Housing Concerned About Future Housing: No Difficulty Paying Gas/Electric Bills: No Difficulty Paying for Meds: No Currently Unemployed: No Education: High School Diploma/GED Difficulty w/ Childcare or Family Care: No Living arrangements: alone Additional living arrangements comments: The patient lives in her own home in [place] with her edgardo. Occupation/Education: retired Gender identity (if verbalized by the patient): Female Spiritual care concerns: No Exam Narrative: GENERAL: Well-appearing, well-nourished, and in no acute distress. HEAD: Normocephalic, atraumatic. EYES: PERRLA and EOMI. ENT: Nares clear, no rhinorrhea or epistaxis. Mucous membranes moist. NECK: Supple. CHEST: Clear to auscultation. No respiratory distress. HEART: Regular rate and rhythm. No murmur heard. Normal peripheral pulses. ABDOMEN: Soft, nontender, nondistended, normal active bowel sounds. EXTREMITIES: Normal range of motion limited range of motion of the left hip tenderness to palpation. No edema. SKIN: Warm, dry, no rash. NEURO: No focal deficits. Alert and oriented x3. GCS 15 PSYCH: Normal mood and affect. Course Vital Signs Vital si
[2023-09-26 00:29] VITALS: BP 139/84; PULSE 79; RESP 18; O2SAT 99
[2023-09-26 00:36] LABS: Appearance Urine Clear (Clear); Bilirubin Urine Negative (Negative); Blood Urine Negative (Negative); Color Urine Yellow (Yellow); Glucose Urine UA Negative (Negative); Ketones Urine Trace mg/dL (Negative); Leukocyte Esterase Ur Negative LEU/UL (Negative); Nitrate Urine Negative (Negative); Protein Urine Negative (Negative); Specific Grav Ur 1.013 (1.001-1.035); Urobilinogen Urine 0.2 mg/dL (<2.0)
[2023-09-26 00:37] LABS: Add Urine Microscopic? NO
--- NOTE | 2023-09-26 01:06 | ADMGEN ---
This patient, Jemima Viveroswisenakia, was admitted to Medical Room 343-01. Patient/family oriented to hospital policies and general routines including ID bracelet, bed and alarms, visiting hours, pain management, procedures, bathroom and other care routines, personal items, smoking policy, room service/diet, and visiting hours. Information on how to activate the Rapid Response Team has been discussed. Patient/Family are encouraged to report perceived risks to care and to ask questions if they do not understand what they are told or what they should do.
[2023-09-26 01:15] VITALS: BP 155/83; PULSE 92; RESP 18; TEMP 36.3; O2SAT 98
[2023-09-26 01:18] VITALS: BMI 21.5
[2023-09-26] MEDS: SODIUM CHLORIDE 0.9% IV 1,000 ML 125 ML IV CONT ×3 (01:24→16:33)
[2023-09-26] MEDS: ONDANSETRON INJ 4 MG/2 ML VIAL IV PUSH ×4 (01:24→16:33)
[2023-09-26] MEDS: MORPHINE SULFATE (*CRX) 2 MG/ML INJ IV PUSH ×4 (01:25→16:33)
[2023-09-26 06:42] VITALS: BP 124/59; PULSE 85; RESP 18; TEMP 36.3; O2SAT 95
--- NOTE | 2023-09-26 07:30 | PM.IMHP ---
H&P: HPI History of Present Illness Date/Time: 09/26/23 07:30 Chief Complaint: left hip pain Narrative: 82 year old female with past medical history of multiple sclerosis (not treated), osteoporosis, and known left pulmonary mas presents to the hospital following a mechanical fall that resulted in a left hip fracture. Per patient she was going to a family members house and she missed a step walking up the stairs. She fell on carpeting and denies LOC, hitting her head or the use of blood thinners. She was immediately assisted by a family member at that time. She states that her pain is exacerbated with any slight movement, but is well controlled on the current regimen. She endorses numbness to her lateral hip and along the back of her thigh stopping around her knee. Sensation remains intact on exam. She denies tingling. She notes left knee pain as well. XR was ordered to rule out injury due to fall. Ortho evaluated patient and plan for surgical repair tomorrow afternoon. Patient will need PT/OT following surgery. Discussed the chest XR and chest CT finding with patient and family and they are aware. They state that the left pulmonary mass has been known about for several years and is being monitored by Dr. Suero. They state that the mass has been biopsied several times and was benign on recent pathology. She denies shortness of breath, chest pain, nausea/vomiting, and changes in bowel/bladder. ED work up: CBC without leukocytosis or anemia, coags and CMP WNL. UA without signs of infection. XR left hip ?revealed intertrochanteric fracture of proximal left femur and mild left hip osteoarthritis. Patient remained GCS 15 with no signs of head injury and is not on blood thinners, so helical imaging of the head C-spine was not required. Review of Systems Review of Systems: All systems reviewed & are unremarkable except as noted in HPI and below PMFSH Past Medical History Medical History Multiple sclerosis Diagnosed in the 1980s. Not actively treated. Nicotine use Surgical History Surgical History Closed intertrochanteric fracture of right hip ORIF with trochanteric nail on 05/31/2022 History of arthroscopy of right shoulder History of bilateral cataract extraction History of bunionectomy History of cochlear implant History of kidney surgery Nephropexy. History of partial thyroidectomy Benign goiter. History of trigger finger Family History Family History Father Cancer Sibling Brain cancer Alcoholism Sibling Cancer Other Alcoholism Cancer Daughter Alcoholism Hypertension Cerebrovascular accident Thyroid disorder Social History Social History Social History: Surrogate medical decision maker: Ebony Price, daughter. Code status: Full code. Smoking packs per day: 0.3 Smoking cigarettes per day: 6.0 Years smoked: 60 Smoking pack-years: 18.00 Smoking status: Current every day smoker Tobacco type: cigarettes Smoking end date: 05/29/22 Alcohol intake: never Substance use: never Substance use type: does not use Do You Feel Safe in your Home?: Yes Lack of Transportation: No Lack of Food: Never True Current Housing: I Have Housing Concerned About Future Housing: No Difficulty Paying Gas/Electric Bills: No Difficulty Paying for Meds: No Currently Unemployed: No Education: High School Diploma/GED Difficulty w/ Childcare or Family Care: No Living arrangements: alone Additional living arrangements comments: The patient lives in her own home in [place] with her bagwellmurali. Occupation/Education: retired Gender identity (if verbalized by the patient): Female Spiritual care concerns: No Meds Home Medications and Allergies
[2023-09-26 08:00] VITALS: O2SAT 95
--- NOTE | 2023-09-26 08:52 | PM.CNOR ---
Assessment and Plan Assessment and plan (1) Closed fracture of left hip: Code(s): S72.002A - Fracture of unspecified part of neck of left femur, initial encounter for closed fracture <LUH Johnson - Last Filed: 09/26/23 09:11> Status: Acute <LUH Johnson - Last Filed: 09/26/23 09:11> Assessment and Plan: Displaced intertrochanteric fracture left hip. Will benefit from internal fixation. Risks, benefits, and alternatives discussed with the patient and her son. They would like a discharge to home after surgery. They are well equipped. Proceed with ORIF left hip fracture with intramedullary nail. <Mychal Greene MD - Last Filed: 09/26/23 17:00> History of Present Illness HPI Consult date: 09/26/23 <LUH Johnson - Last Filed: 09/26/23 09:11> 09/26/23 <Mychal Greene MD - Last Filed: 09/26/23 17:00> Chief complaint: Left intertrochanteric femur fracture <ULH Johnson - Last Filed: 09/26/23 09:11> Narrative: Patient was admitted to the hospital for definitive treatment for hip fracture. Patient tripped and fell in her daughters home from standing height. Patient is typically very active. She lives alone and takes care of her home and yard. She does not use gait aids. Patient states she is quite healthy. She did suffer from at hip fracture on the contralateral hip back in 2021. This was fixe by Dr. Kimbrough. She does not want to go to a rehab. She states she has had a bad experience before. She has very supportive family who will be able to stay with her. No numbness or tingling or other associated symptoms. <LUH Johnson - Last Filed: 09/26/23 09:11> Review of Systems Review of Systems: All systems reviewed & are unremarkable except as noted in HPI and below <LUH Johnson - Last Filed: 09/26/23 09:11> [facility] Past Medical History Medical History: Medical History Multiple sclerosis Diagnosed in the 1980s. Not actively treated. Nicotine use <LUH Johnson - Last Filed: 09/26/23 09:11> Surgical History Surgical History: Surgical History Closed intertrochanteric fracture of right hip ORIF with trochanteric nail on 05/31/2022 History of arthroscopy of right shoulder History of bilateral cataract extraction History of bunionectomy History of cochlear implant History of kidney surgery Nephropexy. History of partial thyroidectomy Benign goiter. History of trigger finger <LUH Johnson - Last Filed: 09/26/23 09:11> Family History Family History: Family History Father Cancer Sibling Brain cancer Alcoholism Sibling Cancer Other Alcoholism Cancer Daughter Alcoholism Hypertension Cerebrovascular accident Thyroid disorder <LUH Johnson - Last Filed: 09/26/23 09:11> Social History Social History: Social History Social History: Surrogate medical decision maker: Ebony Price, daughter. Code status: Full code. Smoking packs per day: 0.3 Smoking cigarettes per day: 6.0 Years smoked: 60 Smoking pack-years: 18.00 Smoking status: Current every day smoker Tobacco type: cigarettes Smoking end date: 05/29/22 Alcohol intake: never Substance use: never Substance use type: does not use Do You Feel Safe in your Home?: Yes Lack of Transportation: No Lack of Food: Never True Current Housing: I Have Housing Concerned About Future Housing: No Difficulty Paying Gas/Electric Bills: No Difficulty Paying for Meds: No Currently Unemployed: No Education: High School Diploma/GED Difficulty w/ Childcare or Family Care: No Living arrangements: alone Additional
[2023-09-26] MEDS: ENOXAPARIN 40 MG/0.4 ML SYRINGE SUB-Q (09:36)
[2023-09-26 16:35] VITALS: BP 138/73; PULSE 101; RESP 18; TEMP 36.9; O2SAT 92
[2023-09-26 20:00] VITALS: PULSE 98; RESP 16; O2SAT 93
[2023-09-26] MEDS: oxyCODONE HCL (*CRX) 5 MG TAB IR PO (20:21)
[2023-09-27] VITALS (9 sets, daily range): BP systolic 118–160; BP diastolic 71–90; PULSE 84–94; RESP 14–20; TEMP 36.2–37.4; O2SAT 92–100
[2023-09-27] MEDS: MORPHINE SULFATE (*CRX) 2 MG/ML INJ IV PUSH (00:58)
[2023-09-27 05:45] LABS: Hematocrit 31.3 % (37.0-47.0); Hemoglobin 10.1 g/dL (12.0-15.0); Mean Corpuscular HGB Conc 32.3 g/dl (32-36); Mean Corpuscular Hemoglobin 32.8 pg (26-34); Mean Corpuscular Volume 101.6 fl (80-100); Mean Platelet Volume 9.2 fl (7.4-10.4); Platelet Count Result 180 k/mm3 (150-375); Red Blood Count 3.08 M/mm3 (4.2-5.4); Red Cell Distribution Width 12.3 % (11.5-14.5); White Blood Count 8.2 K/mm3 (4.5-10.0)
[2023-09-27 05:59] LABS: Alanine Aminotransferase 9 U/L (6-35); Alkaline Phosphatase 71 U/L (38-126); Anion Gap 2 mmol/L (4-12); Aspartate Amino Transferase 14 U/L (14-36); Bilirubin,Total 0.7 mg/dL (0.2-1.3); Blood Urea Nitrogen 12 mg/dL (7-17); Calcium 7.7 mg/dL (8.4-10.2); Carbon Dioxide 25 mmol/L (22-30); Chloride 111 mmol/L (98-107); Estimated CRCL calculation 40 ml/min; Estimated Glomerular Filt Rate > 60; Glucose 115 mg/dL (65-110); Sodium 138 mmol/L (137-145)
--- NOTE | 2023-09-27 08:31 | PM.IMPN ---
Progress Note: A&P Assessment and Plan (1) Fall: Code(s): W19.XXXA - Unspecified fall, initial encounter Status: Acute Assessment and Plan: Mechanical fall after missing a step at family members house. She denies loss of consciousness, is not on anticoagulation, and head trauma. - Lives alone. Independent in ADL's and uses no assistive devices with ambulation. - Will need PT/OT following surgery. Per patient and family they wan t to have skilled PT/OT home health instead of SNF. (2) Closed fracture of left hip: Code(s): S72.002A - Fracture of unspecified part of neck of left femur, initial encounter for closed fracture Status: Acute Assessment and Plan: S/p mechanical fall. Left leg is shortened and externally rotated. Patient reports numbness to lateral hip and along the back of her thigh. Sensation remains intact and able to move toes. DP pulses 2+. - Hip/Pelvis XR: Intertrochanteric fracture of proximal left femur. Mild left hip osteoarthritis. - Analgesics - NPO - Ortho consulted. Plan for ORIF with intramedullary nail today with Dr. Greene. (3) Lung mass: Code(s): R91.8 - Other nonspecific abnormal finding of lung field Status: Acute Assessment and Plan: CXR 09/26/23: ?Mass in left midlung zone suspicious for primary bronchogenic carcinoma. Noncontrast chest CT is recommended. Emphysema. CT chest 09/26/23: 3.3 x 3.1 cm mass in left lung, consistent with primary bronchogenic carcinoma. CT-guided biopsy is recommended. Moderate emphysema. Per patient and family this is a chronic mass. Unknown how long, but they state several years. Seen on CXR in 05/29/22. She states she has had several biopsies in the past which have all been benign. Monitored by PCP Dr. Suero. (4) Multiple sclerosis: Code(s): G35 - Multiple sclerosis Status: Acute Assessment and Plan: Not on treatment. (5) Osteoporosis: Code(s): M81.0 - Age-related osteoporosis without current pathological fracture Status: Acute Assessment and Plan: Well controlled on alendronate 70 mg weekly. Time Spent With Patient Time with patient: 25 - 35 minutes Subjective Date/time seen: 09/27/23 08:31 Interval history: 82 year old female with past medical history of multiple sclerosis (not treated), osteoporosis, and known left pulmonary mas presents to the hospital following a mechanical fall that resulted in a left hip fracture.? Patient is pleasant lying in bed with daughter at bedside. She states that her pain is well controlled with current pain regimen. She is no longer having the numbness. She has intact sensation and movement to the lower extremity. She continues to have an ache to the left knee, but she states this has improved since yesterday. Knee XR negative. Patient states she is ready for surgery and to start her recovery process. Per patient and daughter they due not plan to go to a rehab facility following surgery. They plan to follow with skilled PT/OT at home. They state that they have done therapy with the patient previously for her last hip fracture. Patient denies chest pain, shortness of breath, nausea/vomiting and changes in bladder. She does states that she has not had a bowel movement since her admission. Patient has also not been eating and immobile due to hip fracture. She continues to pass flatus. Review of Systems Review of Systems: All systems reviewed & are unremarkable except as noted in HPI and below Exam Narrative: AF HR 84 RR 14 SpO2 92 BP 118/71 General: female in no acute respiratory distress who is nontoxic appearing, lying recumbent in bed. HEENT: Normocephalic. Atraumatic. Pupils equal round reactive to light. Extraocular movement intact. Sclera clear and anicteric. No facial asymmetry. Chest: Lungs are clear to auscultation bilaterally. No wheezes or crackles. CV: Heart was regular rate and rhythm. S1-S2. No murmurs, gallops, or rubs. Abd: Ab
--- NOTE | 2023-09-27 10:02 | WPDHPUPDATE1 ---
History and Physical Update Update Date/Time: 09/27/23 10:02 History and Physical has been reviewed, including an updated exam of the patient. There are NO changes in the patient's condition. Risks, benefits, and alternatives have been discussed and questions answered. Patient agrees to proceed with procedure.
[2023-09-27] MEDS: SODIUM CHLORIDE 0.9% IV 1,000 ML 125 ML IV CONT (12:27)
[2023-09-27] MEDS: oxyCODONE HCL (*CRX) 5 MG TAB IR PO (14:26)
--- NOTE | 2023-09-27 14:58 | WPDANESEPPF ---
Anes - Initial Pre Proc Eval Procedure: Operation Date: 09/27/23 16:00 Proposed Procedures p Left Intertrochanteric Nail - Mychal Greene MD Date/Time: 09/27/23 14:58 Surgeon: Pavel Goodwin MD Pre Op Diagnosis: Left intertrochanteric femur fracture Patient Data Age: 82 Gender: F Height: 1.63 m Weight: 57 kg Last Vital Signs Temp 99.0 F 09/27/23 14:00 Pulse 88 09/27/23 14:00 Resp 14 09/27/23 14:00 BP 149/82 H 09/27/23 14:00 Pulse Ox 95 09/27/23 14:00 O2 Del Method Room Air 09/27/23 07:45 Allergies Allergy/AdvReac Type Severity Reaction Status Date / Time Iodinated Contrast Media Allergy Unknown Hives Verified 09/27/23 15:03 iohexol Allergy Hives Verified 09/27/23 15:03 [From contrast - CT, X-RAY] Penicillins Allergy Hives Verified 09/27/23 15:03 Home Medications Medication Instructions Recorded Confirmed Type multivitamin with minerals 1 tablet PO DAILY 06/15/22 09/26/23 History (Multiple Vitamin-Minerals tablet) alendronate 70 mg tablet 70 mg PO WEEKLY 09/26/23 09/26/23 History Laboratory Tests 09/27/23 05:13 WBC 8.2 K/mm3 (4.5-10.0) RBC 3.08 L M/mm3 (4.2-5.4) Hgb 10.1 L g/dL (12.0-15.0) Hct 31.3 L % (37.0-47.0) MCV 101.6 H fl (80-100) MCH 32.8 pg (26-34) MCHC 32.3 g/dl (32-36) RDW 12.3 % (11.5-14.5) Plt Count 180 k/mm3 (150-375) MPV 9.2 fl (7.4-10.4) Sodium 138 mmol/L (137-145) Potassium 4.0 mmol/L (3.4-5.0) Chloride 111 H mmol/L (98-107) Carbon Dioxide 25 mmol/L (22-30) Anion Gap 2 L mmol/L (4-12) BUN 12 mg/dL (7-17) Creatinine 0.80 mg/dL (0.7-1.0) Estim Creat Clear Calc 40 ml/min Estimated GFR > 60 (59 - ) Glucose 115 H mg/dL (65-110) Calcium 7.7 L mg/dL (8.4-10.2) Total Bilirubin 0.7 mg/dL (0.2-1.3) AST 14 U/L (14-36) ALT 9 U/L (6-35) Alkaline Phosphatase 71 U/L (38-126) Total Protein 5.0 L g/dL (6.3-8.2) Albumin 3.0 L g/dL (3.5-5.1) Patient hx anesthesia problems: none Family hx anesthesia problems: none Results Review: All pre-operative results and documents have been reviewed as part of the pre-operative evaluation. [facility] Past Medical History Medical History Multiple sclerosis Diagnosed in the . Not actively treated. Nicotine use Surgical History Surgical History Closed intertrochanteric fracture of right hip ORIF with trochanteric nail on 05/31/2022 History of arthroscopy of right shoulder History of bilateral cataract extraction History of bunionectomy History of cochlear implant History of kidney surgery Nephropexy. History of partial thyroidectomy Benign goiter. History of trigger finger Family History Family History Father Cancer Sibling Brain cancer Alcoholism Sibling Cancer Other Alcoholism Cancer Daughter Alcoholism Hypertension Cerebrovascular accident Thyroid disorder Social History Social History Social History: Surrogate medical decision maker: Ebony Price, daughter. Code status: Full code. Smoking packs per day: 0.3 Smoking cigarettes per day: 6.0 Years smoked: 60 Smoking pack-years: 18.00 Smoking status: Current every day smoker Tobacco type: cigarettes Smoking end date: 05/29/22 Alcohol intake: never Substance use: never Substance use type: does not use Do You Feel Safe in your Home?: Yes Lack of Transportation: No Lack of Food: Never True Current Housing: I Have Housing Concerned About Future Housing: No Difficulty Paying Gas/Electric Bills: No Difficulty Paying for Meds: No Currently Unemployed: No Education: High School D
[2023-09-27] MEDS: LACTATED RINGERS 1,000 ML 30 ML IV CONT (15:00)
[2023-09-27] MEDS: TRANEXAMIC ACID 1,000MG/ISO100 1,000 MG/100 ML BAG 200 MG IVPB (15:41)
[2023-09-27] MEDS: ceFAZolin 2 GM/D5W 50 ML 2 GM/50 ML BAG IVPB ×2 (16:21→23:06)
--- NOTE | 2023-09-27 17:32 | P.OP_ITS ---
Procedure Note - Detailed Date of Procedure 09/27/23 Pre-op Diagnosis Left intertrochanteric femur fracture Post-op Diagnosis Same Procedure Performed ORIF left femur intertrochanteric fracture Surgeon Myhcal Greene MD Anesthesia General Findings Anatomic reduction. Good stability. Description of Procedure The patient was given a general anesthetic, then carefully placed in fracture table. Sterile prep and drape performed in the usual fashion. Sterile curtain was used. Gentle traction was utilized to reduce the fracture. Fluoroscopy was used to confirm anatomic reduction and a proper placement of the implants. A longitudinal incision was created at the tip of the trochanter. The deep fascia was incised. The cannulated awl was used to open the proximal femur. The guidewire was placed across the fracture. The reamer was used to open the ca nal. The gamma nail was placed across the fracture site. A separate incision was made for placement of the cannulated guide sleeve. The guide pin was placed in the center of the femoral head. Appropriate measurement was taken. The pin was over reamed. The screw was placed with excellent purchase. The set screw was placed proximally and backed out a quater turn. The distal locking screw was placed through the jig. The wound was irrigated. The deep fascia was closed with #1 Vicryl suture followed by 2-0 Vicryl suture and lula. Sterile dressing was applied. The patient was transferred to the recovery room in stable condition. There were no complications. Implants Swatara short gamma nail 4. 11 x 170 mm. 125?. 95 mm lag screw. 37.5 mm locking screw. Estimated Blood Loss 100 Drains No Packing No Pathology None sent Complications No immediate complications Condition Stable Disposition PACU [facility] Billing Surgery - Charge Forward: Surgery Billing
[2023-09-27] MEDS: fentaNYL CITRATE INJ (*CRX) 100 MCG/2 ML VIAL 25 MCG IV PUSH ×2 (17:42→18:16)
[2023-09-27] MEDS: ACETAMINOPHEN 325 MG TABLET 650 MG PO (23:06)
[2023-09-28 00:16] VITALS: BP 116/61; PULSE 87; RESP 19; TEMP 36.9; O2SAT 98
[2023-09-28 04:16] VITALS: BP 121/65; PULSE 83; RESP 20; TEMP 36.8; O2SAT 97
[2023-09-28] MEDS: ACETAMINOPHEN 325 MG TABLET 650 MG PO ×4 (05:23→23:11)
[2023-09-28 06:00] LABS: Basophils Percent Auto 0.2 % (0.2-1.2); Eosinophils Percent Auto 0.1 % (0-4.4); Hematocrit 29.7 % (37.0-47.0); Hemoglobin 9.9 g/dL (12.0-15.0); Immature Granulocyte Absolute 0.05 K/mm3 (0.00-0.031); Immature Granulocyte Percent A 0.5 % (0-0.5); Lymphocytes Absolute Auto 0.84 K/mm3 (0.9-3.2); Lymphocytes Percent Auto 8.7 % (18.3-44.2); Mean Corpuscular HGB Conc 33.3 g/dl (32-36); Mean Corpuscular Hemoglobin 32.7 pg (26-34); Mean Platelet Volume 9.4 fl (7.4-10.4); Neutrophils Absolute Auto 7.8 K/mm3 (1.3-6.7); Neutrophils Percent Auto 80.5 % (45.5-73.1); Platelet Count Result 174 k/mm3 (150-375); Red Blood Count 3.03 M/mm3 (4.2-5.4); White Blood Count 9.7 K/mm3 (4.5-10.0)
[2023-09-28 06:12] LABS: Alanine Aminotransferase 11 U/L (6-35); Albumin Level 3.1 g/dL (3.5-5.1); Alkaline Phosphatase 70 U/L (38-126); Anion Gap 2 mmol/L (4-12); Aspartate Amino Transferase 19 U/L (14-36); Bilirubin,Total 0.6 mg/dL (0.2-1.3); Blood Urea Nitrogen 11 mg/dL (7-17); Carbon Dioxide 25 mmol/L (22-30); Chloride 107 mmol/L (98-107); Estimated CRCL calculation 45 ml/min; Estimated Glomerular Filt Rate > 60; Glucose 115 mg/dL (65-110); Sodium 134 mmol/L (137-145)
--- NOTE | 2023-09-28 08:08 | WPDANESPN ---
Anes - Prog Note Post-Op Date/Time: 09/28/23 08:08 Cardiovascular status: normal Respiratory status: normal Airway patency: baseline Mental status: baseline Post-Op hydration status: normal Vital Signs: Last Vital Signs Temp 36.8 C 09/28/23 04:16 Pulse 83 09/28/23 04:16 Resp 20 09/28/23 04:16 BP 121/65 09/28/23 04:16 Pulse Ox 97 09/28/23 04:16 O2 Del Method Room Air 09/27/23 18:20 O2 Flow Rate 6 09/27/23 17:36 Pain Score (VAS): 0 I/O: Intake & Output 09/27/23 09/28/23 09/28/23 23:59 07:59 15:59 Intake Total 300 400 Output Total 580 650 Balance -280 -250 Laboratory Tests 09/28/23 05:22 09/28/23 05:22 09/28/23 05:22 WBC 9.7 RBC 3.03 L Hgb 9.9 L Hct 29.7 L MCV 98.0 MCH 32.7 MCHC 33.3 RDW 12.0 Plt Count 174 MPV 9.4 Immature Gran % (Auto) 0.5 Neut % (Auto) 80.5 H Lymph % (Auto) 8.7 L [place] % (Auto) 10.0 H Eos % (Auto) 0.1 Baso % (Auto) 0.2 Lymph # (Auto) 0.84 L [place] # (Auto) 1.0 H Eos # (Auto) 0.0 Baso # (Auto) 0.0 Abs Immat Gran (auto) 0.05 H Absolute Neuts (auto) 7.8 H Absolute Nucleated RBC 0.000 Nucleated RBC % 0.0 Sodium 134 L Potassium 4.0 Chloride 107 Carbon Dioxide 25 Anion Gap 2 L BUN 11 Creatinine 0.70 Estim Creat Clear Calc 45 Estimated GFR > 60 Glucose 115 H Calcium 8.0 L Total Bilirubin 0.6 AST 19 ALT 11 Alkaline Phosphatase 70 Total Protein 6.0 L Albumin 3.1 L Post-procedural complaints: none Patient Feedback: Patient satisfied with anesthetic care.
[2023-09-28] MEDS: SENNA/DOCUSATE SODIUM TABLET 2 TAB PO ×2 (08:32→17:28)
[2023-09-28] MEDS: ENOXAPARIN 40 MG/0.4 ML SYRINGE SUB-Q (08:32)
[2023-09-28] MEDS: ceFAZolin 2 GM/D5W 50 ML 2 GM/50 ML BAG IVPB ×2 (08:33→17:29)
--- NOTE | 2023-09-28 12:40 | PM.PNORT ---
Progress Note: A&P Assessment and Plan (1) Closed fracture of left hip: Code(s): S72.002A - Fracture of unspecified part of neck of left femur, initial encounter for closed fracture Status: Acute Assessment and Plan: Postop day 1: ORIF left femur intertrochanteric fracture Patient tolerated procedure well. No complications. Pain manageable with pain medication. No numbness or tingling. Patient is very eager to return home with home health. She has family that will be able to take care of her. This is reasonable. She will need lula removed 2 weeks after surgery. Weight bearing as tolerated with a walker. We had a lengthy discussion regarding postoperative wound care, limitations, expectations, and exercises. Patient shows good understanding. She has had initial physical therapy and is tolerating it well. She will need to follow up in our office at 1 month. Okay for possible discharge tomorrow if patient is cleared medically. Ortho instructions: DOS: 09/27/23 D/C home with home health. Follow up in office in 4 weeks with xrays. Will need to call for apt. [facility]. Wound Care: Remove lula at 2 weeks post op. Daily dressing changes until healed. PT: Weight bearing as tolerated with a walker. DVT prophylaxis: continue Lovenox for 30 days total Pain medication: Tylenol. Will limit narcotic pain medications. Subjective Subjective Date/Time Seen: 09/28/23 12:40 Interval history: Patient resting comfortably at the time of my visit. Patient notes a tolerable amount of pain. Only taking Tylenol since pain medications made her loopy. Doing well with formal physical therapy. Pain improved slightly since yesterday. Notes pain is more in the groin. No numbness or tingling or other associated symptoms. She is eager to return home and recover. Review of Systems Review of Systems: All systems reviewed & are unremarkable except as noted in HPI and below Exam Narrative: 82 y/o thin female. Patient is alert and oriented x4. Resting comfortably in bed. No acute distress. Dressing dry and intact with minimal bloody drainage. No erythema or ecchymosis. No rashes or lesions noted. Warm, normal appearing skin. Calf nontender. Distal pulses palpable. Normal capillary refill. Patient able to move and wiggle toes. Light touch sensation intact. Objective Data Vital Signs Vital Signs: Vital Signs - 24 hr 09/27/23 14:00 09/27/23 17:36 09/27/23 17:50 Temperature 99.0 F 97.2 F L Pulse Rate 88 88 92 Respiratory Rate 14 20 17 Blood Pressure 149/82 H 159/90 H 156/81 H Pulse Oximetry 95 100 97 Oxygen Delivery Simple Face Mask Room Air Oxygen Flow Rate 6 09/27/23 18:05 09/27/23 18:20 09/27/23 18:46 Temperature 98.1 F Pulse Rate 94 94 90 Respiratory Rate 18 20 16 Blood Pressure 159/80 H 159/79 H 160/81 H Pulse Oximetry 97 92 97 Oxygen Delivery Room Air Room Air Oxygen Flow Rate 09/27/23 19:16 09/27/23 20:16 09/28/23 00:16 Temperature 97.7 F 98.3 F 98.4 F Pulse Rate 87 89 87 Respiratory Rate 17 17 19 Blood Pressure 134/78 140/73 116/61 Pulse Oximetry 93 95 98 Oxygen Delivery Oxygen Flow Rate 09/28/23 04:16 09/28/23 09:31 09/28/23 08:33 Temperature 98.2 F Pulse Rate 83 Respiratory Rate 20 Blood Pressure 121/65 Pulse Oximetry 97 Oxygen Delivery Room Air Room Air Oxygen Flow Rate Intake/Output Intake/Output: Intake & Output 09/25/23 09/26/23 09/27/23 09/28/23 23:59 23:59 23:59 23:59 Intake Total 2170.8 1440 500 Output Total 775 1005 650 Balance 1395.8 435 -150 Meds/Results Medications: Active Medications Generic Name Dose Route Start Last Admin Trade Name Freq PRN Reason Stop Dose Admin Acetaminophen 650 mg 09/27/23 18:45 09/28/23 05:23 Acetaminophen 325 Mg Tablet PO 650 mg Q6HR ALON Administration Enoxaparin Sodium 40 mg 09/26/23 09:00 09/28/23 08:32 Enoxaparin 40 Mg/0.4 Ml Syringe
[2023-09-28 14:00] VITALS: BP 157/74; PULSE 86; RESP 16; TEMP 36.8; O2SAT 99
--- NOTE | 2023-09-28 14:34 | PM.IMPN ---
Progress Note: A&P Assessment and Plan (1) Fall: Code(s): W19.XXXA - Unspecified fall, initial encounter Status: Acute Assessment and Plan: Mechanical fall after missing a step at family members house. She denies loss of consciousness, is not on anticoagulation, and head trauma. - Lives alone. Independent in ADL's and uses no assistive devices with ambulation. - Will need PT/OT following surgery. - Per patient and family they wan t Home Health at discharge. (2) Closed fracture of left hip: Code(s): S72.002A - Fracture of unspecified part of neck of left femur, initial encounter for closed fracture Status: Acute Assessment and Plan: S/p mechanical fall. Left leg is shortened and externally rotated. Patient reports numbness to lateral hip and along the back of her thigh. Sensation remains intact and able to move toes. DP pulses 2+. - Hip/Pelvis XR: Intertrochanteric fracture of proximal left femur. Mild left hip osteoarthritis. - Analgesics as needed. - Ortho consulted. - ORIF with intramedullary nail POD 1 (3) Lung mass: Code(s): R91.8 - Other nonspecific abnormal finding of lung field Status: Chronic Assessment and Plan: CXR 09/26/23: ?Mass in left midlung zone suspicious for primary bronchogenic carcinoma. Noncontrast chest CT is recommended. Emphysema. CT chest 09/26/23: 3.3 x 3.1 cm mass in left lung, consistent with primary bronchogenic carcinoma. CT-guided biopsy is recommended. Moderate emphysema. Per patient and family this is a chronic mass. Unknown how long, but they state several years. Seen on CXR in 05/29/22. She states she has had several biopsies in the past which have all been benign. Monitored by PCP Dr. Suero. (4) Multiple sclerosis: Code(s): G35 - Multiple sclerosis Status: Chronic Assessment and Plan: Not on treatment. (5) Osteoporosis: Code(s): M81.0 - Age-related osteoporosis without current pathological fracture Status: Chronic Assessment and Plan: Well controlled on alendronate 70 mg weekly. Subjective Date/time seen: 09/28/23 14:34 Interval history: Patient doing well today. Once patient is cleared for discharge by orthopedics will discharge home with home health. She is tolerating therapy well and not requiring many pain medications. Exam Narrative: GENERAL: Comfortable, no acute distress HENMT: moist mucous membranes EYES: EOM intact b/l NECK: no lymphadenopathy RESPIRATORY: clear to auscultation, no increased respiratory effort CARDIO: Regular rate and rhythm GI: soft, nontender, bowel sounds present SKIN/EXTREMITIES: no rashes, no edema, no redness or tenderness NEURO: PROM intact, answers questions appropriately, A&O x4 Objective Data Vital Signs Vital Signs: Vital Signs - 24 hr 09/27/23 17:36 09/27/23 17:50 09/27/23 18:05 Temperature 97.2 F L Pulse Rate 88 92 94 Respiratory Rate 20 17 18 Blood Pressure 159/90 H 156/81 H 159/80 H Pulse Oximetry 100 97 97 Oxygen Delivery Simple Face Mask Room Air Room Air Oxygen Flow Rate 6 09/27/23 18:20 09/27/23 18:46 09/27/23 19:16 Temperature 98.1 F 97.7 F Pulse Rate 94 90 87 Respiratory Rate 20 16 17 Blood Pressure 159/79 H 160/81 H 134/78 Pulse Oximetry 92 97 93 Oxygen Delivery Room Air Oxygen Flow Rate 09/27/23 20:16 09/28/23 00:16 09/28/23 04:16 Temperature 98.3 F 98.4 F 98.2 F Pulse Rate 89 87 83 Respiratory Rate 17 19 20 Blood Pressure 140/73 116/61 121/65 Pulse Oximetry 95 98 97 Oxygen Delivery Oxygen Flow Rate 09/28/23 09:31 09/28/23 08:33 09/28/23 11:48 Temperature Pulse Rate Respiratory Rate Blood Pressure Pulse Oximetry Oxygen Delivery Room Air Room Air Room Air Oxygen Flow Rate 09/28/23 14:00 Temperature 98.2 F Pulse Rate 86 Respiratory Rate 16 Blood Pressure 157/74 H Pulse Oximetry 99 Oxygen Delivery Oxygen Flow Rate
[2023-09-28 22:00] VITALS: BP 123/77; PULSE 88; RESP 16; TEMP 36.8; O2SAT 93
[2023-09-28] MEDS: oxyCODONE HCL (*CRX) 5 MG TAB IR PO (23:11)
[2023-09-29 05:03] VITALS: BP 134/72; PULSE 80; RESP 16; TEMP 36.7; O2SAT 92
[2023-09-29] MEDS: ACETAMINOPHEN 325 MG TABLET 650 MG PO (05:08)
[2023-09-29 05:57] LABS: Hematocrit 30.5 % (37.0-47.0); Hemoglobin 9.9 g/dL (12.0-15.0); Mean Corpuscular HGB Conc 32.5 g/dl (32-36); Mean Corpuscular Hemoglobin 32.5 pg (26-34); Mean Platelet Volume 9.3 fl (7.4-10.4); Platelet Count Result 206 k/mm3 (150-375); Red Blood Count 3.05 M/mm3 (4.2-5.4)
[2023-09-29 06:13] LABS: Alanine Aminotransferase 8 U/L (6-35); Albumin Level 3.3 g/dL (3.5-5.1); Alkaline Phosphatase 71 U/L (38-126); Anion Gap 4 mmol/L (4-12); Aspartate Amino Transferase 20 U/L (14-36); Bilirubin,Total 0.8 mg/dL (0.2-1.3); Blood Urea Nitrogen 12 mg/dL (7-17); Calcium 8.5 mg/dL (8.4-10.2); Carbon Dioxide 28 mmol/L (22-30); Chloride 106 mmol/L (98-107); Estimated CRCL calculation 40 ml/min; Estimated Glomerular Filt Rate > 60; Glucose 98 mg/dL (65-110); Potassium 3.6 mmol/L (3.4-5.0); Sodium 138 mmol/L (137-145)
[2023-09-29] MEDS: ENOXAPARIN 40 MG/0.4 ML SYRINGE SUB-Q (08:30)
[2023-09-29] MEDS: SENNA/DOCUSATE SODIUM TABLET 2 TAB PO (08:30)
[2023-09-29] MEDS: polyethylene glycoL 3350 17 GM POWD.PACK PO (08:30)
--- NOTE | 2023-09-29 10:50 | PM.DS ---
DS: Admitting Diagnosis Discharge Date 09/29/23 Admitting Diagnosis left hip fracture DS: Discharge Diagnosis Discharge Diagnosis (1) Fall: Code(s): W19.XXXA - Unspecified fall, initial encounter Status: Acute (2) Closed fracture of left hip: Code(s): S72.002A - Fracture of unspecified part of neck of left femur, initial encounter for closed fracture Status: Acute (3) Lung mass: Code(s): R91.8 - Other nonspecific abnormal finding of lung field Status: Chronic (4) Multiple sclerosis: Code(s): G35 - Multiple sclerosis Status: Chronic (5) Osteoporosis: Code(s): M81.0 - Age-related osteoporosis without current pathological fracture Status: Chronic DS: Summary Hospital Course Hospital Course: This is an 82-year-old female with a past medical history of MS, osteoporosis and known left pulmonary mass that presents to the ED on 09/25/2023 after having a mechanical fall that resulted in a left hip fracture. X-ray of the hip/ pelvis showing intertrochanteric fracture of proximal left femur. Mild left hip osteo arthritis. Orthopedics consulted. Patient underwent left ORIF with intramedullary nail on 09/27/2023. PT and OT ordered on the patient. Patient did very postoperatively required minimal medication. Plan is to discharge home with home health as well as having help from family. Time Spent with Patient Time attestation: Total time spent providing and/or coordinating discharge services: Exam Narrative: GENERAL: Comfortable, no acute distress HENMT: moist mucous membranes EYES: EOM intact b/l NECK: no lymphadenopathy RESPIRATORY: clear to auscultation, no increased respiratory effort CARDIO: Regular rate and rhythm GI: soft, nontender, bowel sounds present SKIN/EXTREMITIES: no rashes, no edema, no redness or tenderness NEURO: PROM intact, answers questions appropriately, A&O x4 DS: Data Data Completed and Pending Labs on day of discharge: Labs from last 24 hours 09/29/23 05:20 WBC 8.0 RBC 3.05 L Hgb 9.9 L Hct 30.5 L MCV 100.0 MCH 32.5 MCHC 32.5 RDW 12.0 Plt Count 206 MPV 9.3 Sodium 138 Potassium 3.6 Chloride 106 Carbon Dioxide 28 Anion Gap 4 BUN 12 Creatinine 0.80 Estim Creat Clear Calc 40 Estimated GFR > 60 Glucose 98 Calcium 8.5 Total Bilirubin 0.8 AST 20 ALT 8 Alkaline Phosphatase 71 Total Protein 6.0 L Albumin 3.3 L Discharge Plan Discharge Attending physician on discharge: Nilda Melendez Consulting providers: Mychal Greene Discharging Clinician: Nikky Hernandez Patient Disposition: Home Health Service Discharge Instructions: Ortho instructions: DOS: 09/27/23 D/C home with home health. Follow up in office in 4 weeks with xrays. Will need to call for apt. [facility]. Wound Care: Remove lula at 2 weeks post op. Daily dressing changes until healed. PT: Weight bearing as tolerated with a walker. DVT prophylaxis: continue Lovenox for 30 days total Pain medication: Tylenol. Will limit narcotic pain medications. Care Coordination: Patient to have [facility] for PT/OT eval and treat, and [place] [facility]. Their phone number is [phone] if you have any questions. RN Please fax discharge instructions to [phone]. Patient Instructions: Antibiotic Form Stand Alone Forms: General Discharge Information Follow-up/Referrals: Mychal Greene MD [Physician] - Saige Bailey APRN [Primary Care Provider] - Discharge Medications: New oxycodone-acetaminophen 2.5-325 mg tablet 1 - 2 tablet PO Q4-6H PRN (Reason: pain) Qty: 20 0RF ondansetron 4 mg tablet,disintegrating 4 mg PO Q8H Qty: 30 0RF Continued Multiple Vitamin-Minerals Tablet 1 tablet PO DAILY alendronate 70 mg tablet 70 mg PO WEEKLY Rx Instructions: TAKES ON SUNDAYS Date of admission: 09/26/23 07:41 Primary Care
--- NOTE | 2023-09-29 13:22 | PM.PNORT ---
Progress Note: A&P Assessment and Plan (1) Closed fracture of left hip: Code(s): S72.002A - Fracture of unspecified part of neck of left femur, initial encounter for closed fracture Status: Acute Assessment and Plan: Postop day 2: ORIF left femur intertrochanteric fracture Will change DVT prophylaxis to ASA 81 mg BID. She is very active and mobile despite the fracture. She is eager to get up and move. Discussed risks. She will get up and take short walks every hour and wear compression socks. Patient requested pain medication just in case and zofran. Will give 2.5 Oxycodone. Okay for discharge from orthopedic standpoint. Patient tolerated procedure well. No complications. Pain manageable with pain medication. No numbness or tingling. Patient is very eager to return home with home health. She has family that will be able to take care of her. This is reasonable. She will need lula removed 2 weeks after surgery. Weight bearing as tolerated with a walker. We had a lengthy discussion regarding postoperative wound care, limitations, expectations, and exercises. Patient shows good understanding. She has had initial physical therapy and is tolerating it well. She will need to follow up in our office at 1 month. Ortho instructions: DOS: 09/27/23 D/C home with home health. Follow up in office in 4 weeks with xrays. Will need to call for apt. [facility]. Wound Care: Remove lula at 2 weeks post op. Daily dressing changes until healed. PT: Weight bearing as tolerated with a walker. DVT prophylaxis: ASA 81 mg BID Pain medication: Oxycodone 2.5 Zofran for nausea. Subjective Subjective Date/Time Seen: 09/29/23 13:22 Interval history: Patient sitting up at the time of my visit. Eager to return home. No issues. Minimal pain. Review of Systems Review of Systems: All systems reviewed & are unremarkable except as noted in HPI and below Exam Narrative: 82 y/o thin female. Patient is alert and oriented x4. Resting comfortably in bed. No acute distress. Dressing dry and intact with minimal bloody drainage. No erythema or ecchymosis. No rashes or lesions noted. Warm, normal appearing skin. Calf nontender. Distal pulses palpable. Normal capillary refill. Patient able to move and wiggle toes. Light touch sensation intact. Objective Data Vital Signs Vital Signs: Vital Signs - 24 hr 09/28/23 14:00 09/28/23 22:00 09/29/23 05:03 Temperature 98.2 F 98.2 F 98.1 F Pulse Rate 86 88 80 Respiratory Rate 16 16 16 Blood Pressure 157/74 H 123/77 134/72 Pulse Oximetry 99 93 92 Oxygen Delivery 09/29/23 08:00 Temperature Pulse Rate Respiratory Rate Blood Pressure Pulse Oximetry Oxygen Delivery Room Air Intake/Output Intake/Output: Intake & Output 09/26/23 09/27/23 09/28/23 09/29/23 23:59 23:59 23:59 23:59 Intake Total 2170.8 1440 740 220 Output Total 775 1005 650 Balance 1395.8 435 90 220 Meds/Results Radiology Results: ITS Impressions Hip/Pelvis X-Ray 09/26/23 05:19 IMPRESSION: 1. Intertrochanteric fracture of proximal left femur. 2. Mild left hip osteoarthritis. Chest X-Ray 09/26/23 05:21 IMPRESSION: 1. Mass in left midlung zone suspicious for primary bronchogenic carcinoma. Noncontrast chest CT is recommended. 2. Emphysema. Chest CT 09/26/23 09:02 IMPRESSION: 1. 3.3 x 3.1 cm mass in left lung, consistent with primary bronchogenic carcinoma. CT-guided biopsy is recommended. 2. Moderate emphysema. Knee X-Ray 09/26/23 17:19 IMPRESSION: No acute osseous finding in the left knee. Labs Labs: Laboratory Results - last 24 hr 09/29/23 05:20 WBC 8.0 RBC 3.05 L Hgb 9.9 L Hct 30.5 L MCV 100.0 MCH 32.5 MCHC 32.5 RDW 12.0 Plt Count 206 MPV 9.3 Sodium 138 Potassium 3.6 Chloride 106 Carbon Dioxide 28 Anion Gap 4 BUN 12 Creatinine 0.80 Estim Creat Clear Calc 40 Estimated GFR > 60
== END 2023-09-29 12:29 | disposition home health service (06) | DRG 482 ==
LOC: ANHED 09-26 00:01 → ANH3MED 09-26 00:23
PROVIDERS: Orthopaedic Surgery; Student in an Organized Health Care Education/Training Program; Admitting Provider Internal Medicine; Emergency Provider Emergency Medicine; PCP Nurse Practitioner Adult Health; Visit Provider Hospitalist
PROC: 0QS734Z Reposition Left Upper Femur with Internal Fixation Device, Percutaneous Approach (ICD-10-PCS; CPT 27245; principal; 2023-09-27 16:00)
DX: S72.142A Displaced intertrochanteric fracture of left femur, initial encounter for closed fracture (principal); G35 Multiple sclerosis; M81.0 Age-related osteoporosis without current pathological fracture; M16.12 Unilateral primary osteoarthritis, left hip; R91.8 Other nonspecific abnormal finding of lung field; W19.XXXA Unspecified fall, initial encounter; Z96.21 Cochlear implant status; Z87.891 Personal history of nicotine dependence
CPT/HCPCS: 36415; 71045; 71250; 73502; 73560; 80053; 81003; 85025; 85027; 85610; 85730; 86850; 86900; 86901; 93005; 96374; 96375; 97110; 97161; 97166; 97530; 97535; 99199; 99285; A9270; C1769; G0378; J0690; J1650; J2270; J2405; J3010; J7030; J7120

== ENCOUNTER 2023-10-28 07:08 | Outpatient (CLI) | payer MEDICARE, SELFPAY ==
--- NOTE | ~2023-10-28 | XR_ITS ---
AP view of the pelvis and AP and lateral views of the left hip Clinical history: Postoperative COMPARISON: 09/25/2023 Findings: Patient is status post interval ORIF of intertrochanteric fracture of the proximal femur si nce prior exam. Osseous and orthopedic hardware alignment is satisfactory. Displaced lesser trochante tanvir fracture fragment persists. Left hip joint space is preserved. Prior ORIF of the proximal right f emur also noted. Soft tissues are unremarkable. Impression: Status post ORIF of intertrochanteric fracture of the proximal left femur, as detailed above. Reviewed, dictated and finalized at location M. Impression: Status post ORIF of intertrochanteric fracture of the proximal left femur, as d etailed above.
== END 2023-10-28 07:09 | disposition home or self-care (01) ==
PROVIDERS: PCP Nurse Practitioner Adult Health; Visit Provider Orthopaedic Surgery
DX: S72.002A Fracture of unspecified part of neck of left femur, initial encounter for closed fracture (principal); Z98.890 Other specified postprocedural states; X58.XXXA Exposure to other specified factors, initial encounter
CPT/HCPCS: 73502

== ENCOUNTER 2024-01-19 08:00 | Outpatient (CLI) | payer MEDICARE, SELFPAY ==
[2024-01-19 19:21] LABS: Basophils Absolute Auto 0.1 K/mm3 (0.0-0.1); Basophils Percent Auto 1.1 % (0.2-1.2); Eosinophils Absolute Auto 0.1 K/mm3 (0-0.3); Eosinophils Percent Auto 1.8 % (0-4.4); Hematocrit 47.1 % (37.0-47.0); Hemoglobin 15.2 g/dL (12.0-15.0); Immature Granulocyte Absolute 0.02 K/mm3 (0.00-0.031); Immature Granulocyte Percent A 0.3 % (0-0.5); Lymphocytes Percent Auto 16.9 % (18.3-44.2); Mean Corpuscular HGB Conc 32.3 g/dl (32-36); Mean Corpuscular Hemoglobin 32.5 pg (26-34); Mean Corpuscular Volume 100.9 fl (80-100); Mean Platelet Volume 9.6 fl (7.4-10.4); Monocytes Absolute Auto 0.5 K/mm3 (0.1-0.6); Monocytes Percent Auto 7.1 % (2.6-8.5); Neutrophils Absolute Auto 4.7 K/mm3 (1.3-6.7); Neutrophils Percent Auto 72.8 % (45.5-73.1); Platelet Count Result 279 k/mm3 (150-375); Red Blood Count 4.67 M/mm3 (4.2-5.4); Red Cell Distribution Width 12.9 % (11.5-14.5); White Blood Count 6.5 K/mm3 (4.5-10.0)
[2024-01-19 19:45] LABS: Alanine Aminotransferase 17 U/L (6-35); Albumin Level 4.4 g/dL (3.5-5.1); Alkaline Phosphatase 95 U/L (38-126); Anion Gap 7 mmol/L (4-12); Aspartate Amino Transferase 40 U/L (14-36); Bilirubin,Total 0.6 mg/dL (0.2-1.3); Blood Urea Nitrogen 19 mg/dL (7-17); Calcium 9.7 mg/dL (8.4-10.2); Carbon Dioxide 28 mmol/L (22-30); Chloride 103 mmol/L (98-107); Estimated Glomerular Filt Rate 53; Glucose 73 mg/dL (65-110); Potassium 4.3 mmol/L (3.4-5.0); Sodium 138 mmol/L (137-145)
== END 2024-01-19 08:01 | disposition home or self-care (01) ==
LOC: ANHBWCLAB 08:02
PROVIDERS: PCP Nurse Practitioner Adult Health; Visit Provider Nurse Practitioner Adult Health
DX: D64.9 Anemia, unspecified (principal)
CPT/HCPCS: 36415; 80053; 85025

== ENCOUNTER 2024-02-17 07:14 | Outpatient (CLI) | payer MEDICARE, SELFPAY ==
--- NOTE | ~2024-02-17 | XR_ITS ---
AP view of the pelvis and AP and lateral views of the right hip Clinical history: Fracture COMPARISON: 10/28/2023 Findings: Patient is status post ORIF of the bilateral proximal femora. No new/acute fracture identif ied.. Bilateral hip and SI joint spaces are preserved. Soft tissues are unremarkable. Impression: No acute abnormality. Status post prior ORIF of the bilateral proximal femora. Reviewed, dictated and finalized at location . Impression: No acute abnormality. Status post prior ORIF of the bilateral proximal femora.
== END 2024-02-17 07:15 | disposition home or self-care (01) ==
PROVIDERS: PCP Nurse Practitioner Adult Health; Visit Provider Orthopaedic Surgery
DX: S72.141A Displaced intertrochanteric fracture of right femur, initial encounter for closed fracture (principal); X58.XXXA Exposure to other specified factors, initial encounter
CPT/HCPCS: 73502

== ENCOUNTER 2024-04-24 07:59 | Outpatient (CLI) | payer MEDICARE, SELFPAY ==
[2024-04-24 19:11] LABS: Hematocrit 48.2 % (37.0-47.0); Hemoglobin 15.3 g/dL (12.0-15.0); Mean Corpuscular HGB Conc 31.7 g/dl (32-36); Mean Corpuscular Hemoglobin 32.3 pg (26-34); Mean Corpuscular Volume 101.9 fl (80-100); Mean Platelet Volume 9.3 fl (7.4-10.4); Platelet Count Result 290 k/mm3 (150-375); Red Blood Count 4.73 M/mm3 (4.2-5.4); Red Cell Distribution Width 13.4 % (11.5-14.5)
[2024-04-24 19:36] LABS: Blood Urea Nitrogen 12 mg/dL (7-17); Calcium 9.4 mg/dL (8.4-10.2); Carbon Dioxide 30 mmol/L (22-30); Estimated Glomerular Filt Rate 47; Glucose 90 mg/dL (65-110); Potassium 5.2 mmol/L (3.4-5.0); Sodium 137 mmol/L (137-145)
[2024-04-24 21:44] LABS: Anion Gap 3 mmol/L (4-12); Chloride 104 mmol/L (98-107)
== END 2024-04-24 08:00 | disposition home or self-care (01) ==
PROVIDERS: PCP Nurse Practitioner Adult Health; Visit Provider Nurse Practitioner Adult Health
DX: D64.9 Anemia, unspecified (principal); E87.1 Hypo-osmolality and hyponatremia
CPT/HCPCS: 36415; 80048; 85027

== ENCOUNTER 2024-10-23 07:40 | Outpatient (CLI) | payer MEDICARE, SELFPAY ==
--- OUTSIDE RECORDS SUMMARY | 2024-10-23 07:44 | XMS_ITS | Clinical Summary ---
[facility] Organization [facility] Address [address] [place] [address] Care Team Providers Care Professional Development Director Name Role Phone Myron Suero MD Primary Care Provider [phone] Allergies Active Allergy Reactions Criticality Noted Date Comments Iodine Rash Medium 03/12/2020 IV contrast Penicillins Rash Medium 02/25/2021 Medications multivitamin capsule Take 1 capsule by mouth every morning Active vit C,H-My-ngork-kiel tein-zeaxan 250-90-40-1 mg capsule Take by mouth every morning Active acetaminophen (TYLENOL) 500 mg tablet Take 2 tablets (1,000 mg total) by mouth every 6 (six) hours as needed for pain Active HYDROcodone-tyler taminophen (NORCO) 5-325 mg per tabletIndicatio ns:Pain Take 1 tablet by mouth every 6 (six) hours as needed for pain 10 tablet 09/09/2022 Active Active Problems Problem Noted Date Diagnosed Date ASNHL (asymmetrical sensorineural hearing loss) 12/21/2021 Assessment & Plan (12/21/2021 4:19 PM CDT): MRI Internal Auditory Canal - call with results Based on these findings will refer to Otology for Cochlear Implant candidacy Bilateral impacted cerumen 12/21/2021 Surgical History Surgery Date Site/Laterality Comments TRIGGER FINGER RELEASE Right 2019 CATARACT EXTRACTION 06/06/2016 - 06/05/2017 Bilateral FOOT SURGERY 06/06/2006 - 06/05/2007 THYROID SURGERY 06/06/1961 - 06/05/1962 goiter KIDNEY SURGERY 06/06/1961 - 06/05/1962 kidney tie up HIP SURGERY 05/31/2022 Medical History Medical History Date Comments PONV (postoperative nausea and vomiting) Multiple sclerosis (HCC) Family History Medical History Relation Name Comments Anesthesia problems Neg Hx Social History Tobacco Use Types Packs/Day Years Used Date Smoking Tobacco: Former Cigarettes 0.3 63 0 06/06/1959 - 05/29/2022 Passive Smoke Exposure: Past Tobacco Cessation:Counseling Given: Not Answered AUDIT-C Answer Date Recorded Frequency of Alcohol Consumption Not on file 09/09/2022 Q2: How many drinks containi ng alcohol do you have on a typical day when you are drinking? Patient does not drink Frequency of Binge Drinking Not on file 11/2022 Personal Safety Answer Date Recorded Have you ever been in or are you currently in a harmful physical or emotional relationship or is someone making you feel afraid or unsafe? Denies 09/09/2022 Comments Unknown Sex and Gender Information Value Date Recorded Sex Assigned at Not on file Legal Sex Female 11:14 AM CDT Gender Identity Not on file Sexual Orientation Not on file Obstetrics History Last Filed Vital Signs Vital Sign Reading Time Taken Comments Blood Pressure 154/82 09/09/2022 10:45 AM CDT Pulse 71 09/09/2022 10:45 AM CDT Temperature 36.8 C (98.2 F) 09/09/2022 9:50 AM CDT Respiratory Rate 17 09/09/2022 10:4 5 AM CDT Oxygen Saturation 99% 09/09/2022 10: 45 AM CDT Inhaled Oxygen Concentration - - Weight 52.5 kg (115 lb 12.8 oz) 09/09/2022 6:59 AM CDT Height 165.1 cm (5' 5 ) 09/09/2022 6:59 AM CDT Body Mass Index 19.27 09/09/2022 6:59 AM CDT Plan of Treatment Health Maintenance Due Date Last Done Comments Depression Screening 1940 Osteoporosis Screening-Bone Density Scan 1940 DTaP/Tdap/Td Vaccine (1 - Tdap) 12/01/1950 Hepatitis B Screening 12/01/1957 Well Visit 65+ 12/01/2004 Pneumococcal vaccine 65+ (2 of 2 - PCV) 03/29/2021 03/29/2020 Fall Risk Assessment 09/10/2023 09/09/2022 Covid-19 Vaccine ( - 2023-2 5 season) 2024 09/17/2021, 04/01/2021, 07/28/2020, Additional history exists Influenza Vaccine (Season Ended) 2025 03/29/20 Zoster Vaccine Completed 06/09/2021, 01/30/2021 Medical Devices Implanted Type Area Welcome Hostess Device Identifier Shelf Expiration Date Model / Serial / Lot Cochlear [employer] Implant Cochlear Cochlear Nucleus Profile Plus Slim Modiolar Electrode [id number] - [id number] - [id number] Implanted:Qty: 1 on 09/09/2022 by Donta Grande MD at [facility] Surgery [place]ud[place] Left: Cochlea Cochlear [employer] 06/21/2024 [id number] / [id number] / Insurance MEDICARE [facility] MEDICARE [facility] MEDICARE [facility] Care Teams Professional Development Director Relationship Specialty Start Date End Date Myron Suero MD PCP - General Family Practice 09/09/22
--- OUTSIDE RECORDS SUMMARY | 2024-10-23 07:44 | XMS_ITS | Encounter Summary ---
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
--- OUTSIDE RECORDS SUMMARY | 2024-10-23 07:44 | XMS_ITS | Clinical Summary ---
Author Organization [facility] Address [address] [place] [address] Care Team Providers Care Starch Crab Name Role Phone Karthik Bello MD Primary Care Provider Allergies Active Allergy Reactions Criticality Noted Date Comments Iodine Rash Low 03/12/2020 IV contrast Penicillins Rash Low 02/25/2021 Medications Multiple Vitamins-Mineral s (MULTIVITAMIN ADULTS OR) Active meloxicam 15 MG tabletIndication s:Adhesive capsulitis of right shoulder Take 1 tablet (15 mg total) by mouth daily. 30 tablet 2 06/02/2021 Active Active Problems Problem Noted Date Diagnosed Date Adhesive capsulitis of right shoulder 05/05/2021 Shoulder impingement, right 04/03/2021 Aftercare following surgery 04/01/2021 Cubital tunnel syndrome on right 02/25/2021 Dupuytren's contracture of right hand 02/25/2021 PONV (postoperative nausea and vomiting) 021 Family History Medical History Relation Comments No Known Problems Father No Known Problems Mother Relation Status Comments Father Mother Social History Tobacco Use Types Packs/Day Years Used Date Smoking Tobacco: Every Day Cigarettes Smokeless Tobacco: Never Alcohol Use Standard Drinks/Week Comments Not Currently 0 (1 standard drink = 0.6 oz pur e alcohol) Comments No Sex and Gender Information Value Date Recorded Sex Assigned at Not on file 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 Gender Identity Not on file Sexual Orientation Not on file Last Filed Vital Signs Vital Sign Reading Time Taken Comments Blood Pressure 113/69 03/19/2021 11:42 AM CDT Pulse 76 03/19/2021 11:42 AM CDT Temperature 36 C (96.8 F) 03/19/2021 11:42 AM CDT Respiratory Rate 16 03/19/2021 11:42 AM CDT Oxygen Saturation 95% 03/19/2021 11:42 AM CDT Inhaled Oxygen Concentration - - Weight 53.5 kg (118 lb) 06/02/2021 9:05 AM HYDRAULIC REPAIRER Height 165.1 cm (5' 5 ) 06/02/2021 9:05 AM HYDRAULIC REPAIRER Body Mass Index 19.64 06/02/2021 9:05 AM HYDRAULIC REPAIRER Plan of Treatment Health Maintenance Due Date Last Done Comments DTaP, Tdap and Td Vaccines ( 1 - Tdap) 12/01/1959 Pneumococcal Vaccine: 50+ Years (1 of 2 - PCV) 12[birth year]01/1959 Annual Medicare Wellness Visit 12/01/2004 Dexa Scan (General) 12/01/2004 RSV Immunization or 60+ Years (1 - 1-dose 75+ series) 12/01/2014 Zoster Vaccines (2 of 2) 03/27/2021 01/30/2021 COVID-19 Vaccine (3 - 2023-2 5 season) 2024 07/28/2020, 07/06/2020 Meningococcal B Vaccine Aged Out No l onger eligible based on patient's age to complete this topic Meningococcal Vaccine Aged Out No coreen gabo eligible based on patient's age to complete this topic RSV Immunizations Under 20 Months Aged Out No longer eligible b ased on patient's age to complete this topic Insurance [facility] MEDICARE Care Teams Starch Crab Relationship Specialty Start Date End Date Karthik Bello MD [address] [address] PCP - General FAMILY PRACTICE 03/12/20
--- OUTSIDE RECORDS SUMMARY | 2024-10-23 07:44 | XMS_ITS | Referral Summary ---
Author Organization [facility] Address [address] [place] [address] Care Team Providers Care Waterproofing Mixer Name Role Phone Myron Suero MD Primary Care Provider [phone] Allergies Active Allergy Reactions Criticality Noted Date Comments Iodine Rash Medium 03/12/2020 IV contrast Penicillins Rash Medium 02/25/2021 Medications multivitamin capsule Take 1 capsule by mouth every morning Active vit C,X-[id number]-igmvx-kiel tein-zeaxan 250-90-40-1 mg capsule Take by mouth [...] Cochlear Implant candidacy Bilateral impacted cerumen 12/21/2021 Social History Tobacco Use Types Packs/Day Years [...] 09/09/2022 6:59 AM CDT Plan of Treatment Not on file Medical Devices Implanted Type Area Medical Office Technician Device Identifier Shelf Expiration Date Model / Serial / Lot [employer]chle[employer] Implant Cochlear Cochlear Nucleus Profile Plus Slim Modiolar Electrode [id number] - [id number] - [id number] Implanted:Qty: 1 on 09/09/2022 by Donta Grande MD at [facility] Left: Cochlea [employer]chle[employer] 06/21/2024 [id number] / [id number] / Insurance MEDICARE [facility] MEDICARE [facility] MEDICARE [facility] Care Teams Waterproofing Mixer Relationship Specialty Start Date End Date Myron Suero MD PCP - General Family Practice 09/09/22
[2024-10-23 18:56] LABS: Alanine Aminotransferase 16 U/L (6-35); Albumin Level 4.2 g/dL (3.5-5.1); Alkaline Phosphatase 110 U/L (38-126); Anion Gap 6 mmol/L (4-12); Aspartate Amino Transferase 44 U/L (14-36); Bilirubin,Total 0.7 mg/dL (0.2-1.3); Blood Urea Nitrogen 10 mg/dL (7-17); Calcium 9.3 mg/dL (8.4-10.2); Carbon Dioxide 29 mmol/L (22-30); Chloride 103 mmol/L (98-107); Estimated Glomerular Filt Rate 53; Glucose 88 mg/dL (65-110); Potassium 4.6 mmol/L (3.4-5.0); Sodium 138 mmol/L (137-145)
[2024-10-23 19:27] LABS: Hematocrit 46.3 % (37.0-47.0); Hemoglobin 14.4 g/dL (12.0-15.0); Mean Corpuscular HGB Conc 31.1 g/dl (32-36); Mean Corpuscular Hemoglobin 31.7 pg (26-34); Mean Platelet Volume 9.6 fl (7.4-10.4); Platelet Count Result 282 k/mm3 (150-375); Red Blood Count 4.54 M/mm3 (4.2-5.4); Red Cell Distribution Width 12.8 % (11.5-14.5); White Blood Count 6.8 K/mm3 (4.5-10.0)
[2024-10-23 20:33] LABS: Vitamin D 25 Hydroxy 33.2 ng/mL
== END 2024-10-23 07:41 | disposition home or self-care (01) ==
LOC: ANHBWCLAB 07:42
PROVIDERS: PCP Nurse Practitioner Adult Health; Visit Provider Nurse Practitioner Adult Health
DX: Z51.81 Encounter for therapeutic drug level monitoring (principal); M81.0 Age-related osteoporosis without current pathological fracture; D64.9 Anemia, unspecified
CPT/HCPCS: 36415; 80053; 82306; 85027